=== PATIENT | male | born 1960 | race Caucasian/White ===

== ENCOUNTER 2017-05-29 12:00 | Inpatient (IN) | payer MEDICAID ==
[~2017-05-29] VITALS: Ht 182.9 cm; Wt 81.8 kg
[2017-05-29] MEDS ORDERED: TRIH2TAB3 PO (12:15)
[2017-05-29] MEDS ORDERED: OMEP20CA3 PO (12:15)
[2017-05-29] MEDS ORDERED: HYDR50CA2 PO (12:15)
[2017-05-29] MEDS ORDERED: VENL75CA47 (12:15)
[2017-05-29] MEDS ORDERED: DIVA500T9 (12:15)
[2017-05-29] MEDS ORDERED: GABA-282 PO (12:15)
[2017-05-29] MEDS ORDERED: FLUP5TA PO ×2 (12:15→16:25)
[2017-05-29] MEDS ORDERED: DIVA500T9 PO (12:15)
[2017-05-29] MEDS ORDERED: MOM 30ML SUSPENSION UDC PO PRN (14:00)
[2017-05-29] MEDS ORDERED: ACETAMINOPHEN TAB 650MG DOSE (2X325MG) PO PRN (14:00)
[2017-05-29] MEDS ORDERED: MAALOX 30 ML SUSP *UDC PO PRN (14:00)
[2017-05-29] MEDS ORDERED: FLUP25VL IM (16:18)
[2017-05-29] MEDS ORDERED: HYDR50TA70 PO (16:25)
[2017-05-29] MEDS: traZODone 50 MG TAB PO PRN (20:08)
[2017-05-29] MEDS: risperiDONE 1 MG TAB PO SCH (20:08)
[2017-05-30 06:38] VITALS: BP 130/69
[2017-05-30] MEDS: risperiDONE 1 MG TAB PO SCH ×2 (08:38→20:27)
--- NOTE | 2017-05-30 09:07 | HPEPDOC ---
Medical History and Physical Date of Admission May 30, 2017 History and Physical PCP: [facility] ATTENDING: Dr. Carlos Jimenez HPI: 56 yo M [facility] for unspecified depressive disorder, being medically examined today. Patient is transferred from [facility] to [facility]. No acute medical complaints today. Patient states he takes Depakote for mood, gabapentin for social anxiety. Denies any fevers, chills, weakness, fatigue, LEMUS , CP, SOB, cough, palpitations, abdominal pain, N/V/D or changes in bowel or bladder habits. PMHx: GERD COPD Tobacco use Schizophrenia Schizoaffective disorder Bipolar disorder Anxiety Depression Hypertension History of alcohol use History of substance use Poor dentition PSHX: Right ankle fracture SOCHX: Resides in: [facility], resides with a roommate Marital Status: Single Kids: None Employment: Unemployed Tobacco use: 3 packs per day ETOH: Daily, states 1-2 drinks per day Illicit Drugs: Marijuana daily IV Drug Use: History of cocaine in the 1980s per patient. Tattoos done unprofessionally: Denies FAMHX: Mother: , unknown Father: , lung cancer Siblings: One sister , unknown. 2 brothers Alive, well Children: None Unexpected deaths due to medical reasons: None. ROS: As noted in HPI, otherwise 11pt ROS of systems reviewed and unremarkable. PE: GEN: 56-year-old male, appears older than stated age. Thin appearing. No acute distress. Alert and oriented x 3. Difficulty with answering questions. HEENT: Normocephalic, atraumatic. Pupils are equal, round, and reactive to light. Extraocular movements are intact. No nystagmus appreciated. Sclera are nonicteric. Conjunctiva without injection. Nose midline. EACs both patent BL. TMs both visualized and sy with good cone of light, no bulging or erythema. No facial asymmetry. Moist mucous membranes. Poor dentition. Pharynx pink and moist. Neck supple, trachea midline. No lymphadenopathy or thyromegaly appreciated. CHEST: Regular rate and rhythm, +S1, +S2 LUNGS: Clear to auscultation bilaterally. No wheezes, rales, or rhonchi. Breathing appears symmetric and easy. Patient is speaking in full sentences. No accessory muscle use. ABD: Round, soft, non-tender, non-distended. +Bowel sounds throughout. No rebound or guarding. No costovertebral angle tenderness. EXT: Pulses 2+ bilaterally dorsalis pedis and radial. No lower extremity edema appreciated. SKIN: Smarr, dry, warm. Capillary refill <2sec. No rashes. NEURO: Alert and oriented x 3. Cranial nerves III-XII are intact. No focal deficits appreciated. EKG: [facility]. SB 56 bpm. [facility] WBC 10.7 Hgb 13.5 HCT 39.0 PLT 256 Gluc 92 BUN 17 SCr 0.679 Na 138 Cl 101 K 4.1 Ca 8.5 ALT 18 AST 12 UA unremarkable toxicology unremarkable A&P: 56 yo M [facility] for unspecified depressive disorder 1. Psych. Plan per Psychiatry. EKG on file. 2. Nicotine dependence. Patch available. 3. GERD. Continue Prilosec 40 mg daily. 4. Follow up with PCP on discharge. 5. Substance use. Per psychiatry. 6. History of hypertension. Blood pressure is noted to be 130/69 this morning. Monitor blood pressure trends. 7. Poor dentition. Arrange follow up with dental provider at discharge. No reported pain or issues at this time. 8. Staff member Gaston present throughout exam. Vital Signs Vital Signs Date Time Temp Pulse Resp B/P (MAP) Pulse Ox O2 Delivery O2 Flow Rate FiO2 05/30/17 06:38 97.8 57 20 130/69 (89) 05/29/17 15:16 98 Room Air Home Medications Scheduled Divalproex Sodium (Divalproex Sodium ER) 500 Mg Tab, 1,000 MG PO BID Fluphenazine Decanoate (Fluphenazine Decanoate) 25 Mg/Ml Soln, 25 MG IM Q2WK for PSYCHOSIS Fluphenazine HCl (Fluphenazine HCl) 5 Mg Tab, 7.5 MG PO BID for SCHIZOPHRENIA Gabapentin (Gabapentin) 300 Mg Cap, 300 MG PO BID for SOCIAL ANXIETY Omeprazole (Omeprazole) 20 Mg Cap, 40 MG PO DAILY Trihexyphenidyl HCl (Trihexyphenidyl HCl) 2 Mg Tab, 2 MG PO DAILY for EPS TAKE WITH FOOD Venlafaxine HCl (Venlafaxine HCl ER) 75 Mg Capcr, DAILY Scheduled PRN Hydroxyzine HCl (Hydroxyzine HCl) 50 Mg Tab, 50 MG PO TIDP PRN for ANXIETY Allergies Coded Allergies: Haloperidol (Verified Allergy, Severe, 05/29/17) Chlorpromazine (Verified Allergy, Intermediate, 05/29/17) Benztropine (Verified Allergy, Unknown, 05/29/17) Magi Pavon May 30, 2017 09:07
[2017-05-30] MEDS: OMEPRAZOLE 20 MG CAP PO SCH (09:36)
[2017-05-30] MEDS ORDERED: hydrOXYzine 50 MG TAB PO PRN (09:45)
[2017-05-30] MEDS ORDERED: fluPHENAZine DECAN 25MG/ML 5ML VIAL (J2680) IM ONE (10:00)
--- NOTE | 2017-05-30 12:11 | MHHPE ---
DATE OF ADMISSION: 05/29/2017 Mr. Arellano is followed by the [facility]. He states he is "bummed out". He states he has been smoking Marijuana and drinking and getting depressed. Apparently, he stated suicide was being considered. He states the last time he ws sober was 5 years ago. He also states he has been in an relationship not working out. He has been somewhat noncompliant with medications mostly due to sexual side effects. After speaking with the [facility], he presented himself to the emergency room and was sent here. MEDICATION HISTORY: He is presently on Prolixin injectable every 2 weeks and oral. He received his injection today here. He is also on Depakote, gabapentin, risperidone and Artane and venlafaxine. LIVING SITUATION: He is in a supervised apartment, which is run by [employer]. PSYCHIATRIC CARE: He is taken care by the ACT team with . The patient was born in [place] with a GED education. 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 He states he has also worked in [employer]. LEGAL HISTORY: He does not have any recent legal difficulties. ALCOHOL HISTORY: He has been drinking daily. He states he used to drink a 12-pack a day but he states now with medications, it has been less. He does smoke marijuana daily. HOSPITALIZATION HISTORY: He states he has had multiple hospitalizations in [place]. MENTAL STATUS EXAMINATION: He denies hallucinations, delusions, obsessive compulsive and phobias. His speech is somewhat rapid. No obvious significant disturbance in thought process. No loose associations. No present psychotic thoughts expressed. Judgment and insight fair. He is fully oriented to recent and remote memory. No difficulties with attention and concentration. He has a full fund of knowledge. His mood is good. He is grateful to be here and his affect is reasonably bright. Physical difficulties noted besides from those seen by our physician is that he has severe varicose veins on his right leg. DIAGNOSIS: Schizophrenia, chronic. PLAN: Continue medications and observe.
[2017-05-30 12:54] LABS: MEAN CORPUSCULAR HEMOGLOBIN 31.6 pg (27.0-33.0); MEAN CORPUSCULAR HGB CONC 34.1 g/dl (32.0-36.5); MEAN CORPUSCULAR VOLUME 92.7 fl (80.0-96.0); RED CELL DISTRIBUTION WIDTH 13.7 % (11.5-14.5)
[2017-05-30 18:00] VITALS: BP 128/86
[2017-05-30] MEDS: DIVALPROEX 500MG *ER* TAB PO SCH (20:27)
[2017-05-30] MEDS: GABAPENTIN 300 MG CAP PO SCH (20:27)
[2017-05-31 06:44] VITALS: BP 140/84
[2017-05-31] MEDS: VENLAFAXINE **XR** 75MG CAPSULE PO SCH (09:11)
[2017-05-31] MEDS: DIVALPROEX 500MG *ER* TAB PO SCH ×2 (09:11→21:00)
[2017-05-31] MEDS: TRIHEXYPHENIDYL 2 MG TAB PO SCH (09:11)
[2017-05-31] MEDS: risperiDONE 1 MG TAB PO SCH ×2 (09:11→21:00)
[2017-05-31] MEDS: OMEPRAZOLE 20 MG CAP PO SCH (09:11)
[2017-05-31] MEDS: GABAPENTIN 300 MG CAP PO SCH ×2 (09:11→21:02)
--- NOTE | 2017-05-31 15:20 | MHIPN ---
DATE: 05/31/2017 Jesse Arellano was seen by me today. He states he would like to relocate to [place] because he thinks there are more facilities here. He thinks his difficulties were made worse by his drinking. As discussed yesterday, he was noncompliant with his antipsychotics due to sexual side effects. I noted that he is on two antipsychotics and will consider changing that back to simply Prolixin. He received a Prolixin injection on admission. MENTAL STATUS EXAMINATION: Speech is normal. No disturbance of thought processes. No discussion of psychotic thoughts or presentation of hallucinations or delusions. Judgment and insight are fair. He is fully oriented. Recent and remote memory intact. No disturbance of attention and concentration. He has a full fund of knowledge and his mood seems good, affect neutral. DIAGNOSIS: Chronic schizophrenia. PLAN: Placement housing and followup issues to be discussed with [employer] planners and possible reduction of antipsychotics to Prolixin only.
[2017-05-31 18:34] VITALS: BP 121/83
[2017-06-01 06:48] VITALS: BP 138/71
[2017-06-01] MEDS: VENLAFAXINE **XR** 75MG CAPSULE PO SCH (08:47)
[2017-06-01] MEDS: GABAPENTIN 300 MG CAP PO SCH ×2 (08:47→20:51)
[2017-06-01] MEDS: TRIHEXYPHENIDYL 2 MG TAB PO SCH (08:47)
[2017-06-01] MEDS: OMEPRAZOLE 20 MG CAP PO SCH (08:47)
[2017-06-01] MEDS: risperiDONE 1 MG TAB PO SCH (08:47)
[2017-06-01] MEDS: DIVALPROEX 500MG *ER* TAB PO SCH ×2 (08:47→20:51)
--- NOTE | 2017-06-01 11:34 | IPN ---
DATE OF SERVICE: 06/01/2017 Mr. Arellano would like to go to rehabilitation for drug and alcohol use. He also feels he cannot go back to the place where he lived, that there is no significant help for him there and he cannot get a job and that he gets associated with people who drink and use drugs. He does not recall any reason why he is on two antipsychotics. For this reason and the fact that he does well on Prolixin, I have discontinue his Risperdal. He has gotten his clothes. MENTAL STATUS EXAMINATION: Speech is normal. Thought process is normal. No loose associations. No psychotic thoughts at this time. Judgment and insight are good. He is fully oriented. Recent and remote memory intact. Attention and concentration intact. He has a full fund of knowledge. Mood is good. Affect is pleasant. DIAGNOSIS: Schizophrenia, chronic. Mixed substance abuse.
[2017-06-01 18:00] VITALS: BP 134/78
[2017-06-02 06:00] VITALS: BP 141/70
[2017-06-02] MEDS: VENLAFAXINE **XR** 75MG CAPSULE PO SCH (08:53)
[2017-06-02] MEDS: OMEPRAZOLE 20 MG CAP PO SCH (08:53)
[2017-06-02] MEDS: DIVALPROEX 500MG *ER* TAB PO SCH ×2 (08:53→20:15)
[2017-06-02] MEDS: TRIHEXYPHENIDYL 2 MG TAB PO SCH (08:53)
[2017-06-02] MEDS: GABAPENTIN 300 MG CAP PO SCH ×2 (08:53→20:15)
--- NOTE | 2017-06-02 12:23 | MHIPN ---
DATE: 06/02/2017 Mr. Arellano yesterday spoke about rehabilitation for drug and alcohol abuse. Discharge planners have been in touch with his case coordinator. Today, he stated he would like to go home prior to rehabilitation. Apparently, his desire to go to rehabilitation has been repeated in the past. Some concern that patient was on two antipsychotics and I discontinued his Risperdal. He has gotten his clothes. MENTAL STATUS EXAMINATION: Speech is normal. Thought process is normal. No loose associations. No psychotic thoughts. Judgment and insight are good. He is fully oriented. Recent and remote memory are intact. Attention and concentration intact. He has a full fund of knowledge. Mood is good. Affect is pleasant. DIAGNOSIS: Schizophrenia, chronic. Substance abuse.
[2017-06-02 18:33] VITALS: BP 133/80
[2017-06-03 07:14] VITALS: BP 130/75
[2017-06-03] MEDS: TRIHEXYPHENIDYL 2 MG TAB PO SCH (08:55)
[2017-06-03] MEDS: DIVALPROEX 500MG *ER* TAB PO SCH ×2 (08:56→20:14)
[2017-06-03] MEDS: VENLAFAXINE **XR** 75MG CAPSULE PO SCH (08:56)
[2017-06-03] MEDS: GABAPENTIN 300 MG CAP PO SCH ×2 (08:57→20:14)
[2017-06-03] MEDS: OMEPRAZOLE 20 MG CAP PO SCH (08:57)
[2017-06-03 18:28] VITALS: BP 102/66
[2017-06-03] MEDS: traZODone 50 MG TAB PO PRN (20:16)
[2017-06-04 06:22] VITALS: BP 130/74
[2017-06-04] MEDS: GABAPENTIN 300 MG CAP PO SCH ×2 (08:02→21:46)
[2017-06-04] MEDS: TRIHEXYPHENIDYL 2 MG TAB PO SCH (08:02)
[2017-06-04] MEDS: OMEPRAZOLE 20 MG CAP PO SCH (08:02)
[2017-06-04] MEDS: VENLAFAXINE **XR** 75MG CAPSULE PO SCH (08:02)
[2017-06-04] MEDS: DIVALPROEX 500MG *ER* TAB PO SCH ×2 (08:02→21:46)
[2017-06-04 18:50] VITALS: BP 128/70
[2017-06-05 06:00] VITALS: BP 140/77
[2017-06-05] MEDS: GABAPENTIN 300 MG CAP PO SCH (08:21)
[2017-06-05] MEDS: VENLAFAXINE **XR** 75MG CAPSULE PO SCH (08:22)
[2017-06-05] MEDS: DIVALPROEX 500MG *ER* TAB PO SCH (08:22)
[2017-06-05] MEDS: OMEPRAZOLE 20 MG CAP PO SCH (08:22)
[2017-06-05] MEDS: TRIHEXYPHENIDYL 2 MG TAB PO SCH (08:22)
--- NOTE | 2017-06-05 10:39 | MHDS ---
DATE OF ADMISSION: 05/29/2017 DATE OF DISCHARGE: 06/05/2017 Mr. Arellano is followed at the [facility]. He states he is "bummed out". He has been smoking marijuana, drinking and getting depressed. Apparently he states that he was considering suicide. He states the last time he was sober was 5 years ago. He states he has been in a relationship that has not been working out. He has been noncompliant with medications due to sexual side effects and after speaking with the [facility], he decided to come to the emergency room. MEDICATION HISTORY: He has been on Prolixin injectable every 2 weeks and received an injection while here. He is on: - Depakote - gabapentin - risperidone - Artane - venlafaxine LIVING SITUATION: He is in a supervised apartment run by [employer]. Patient was born in [place] with a GED education. He worked in mental health field. According to him, he states he has worked in [employer]. LEGAL HISTORY: He does not have any recent legal difficulties. ALCOHOL HISTORY: Negative. He has been drinking daily. He states he used to drink a 12 pack a day but states it has been less recently. He smokes marijuana daily. He has had multiple hospitalizations in [place]. MENTAL STATUS EXAMINATION ON ADMISSION: He denies hallucinations, delusions, obsessions, compulsions and phobias. COURSE ON THE UNIT: The patient stated he would like to relocate to [place]. Apparently this is according to workers who care for him. This is a repetitive request by him. He later stated he would like to return to his present living situation until he hears any further information about rehabilitation or changing his living situation. I noted that the patient was on two antipsychotics and changed him back to simply being on Prolixin. If there is a need for other antipsychotics to be added to the Prolixin, I would suggest that be taken up by his outpatient treatment. Mr. Arellano stated that he felt he was not getting significant help where he lived and that he was associating with people who drink and use drugs. He was unable to tell me why he was on two antipsychotics. I discontinued his risperidone since he was already on Prolixin. Patient stated that he would like to go home prior to rehabilitation. Patient continuing on his home medications of Prolixin, gabapentin, Artane and venlafaxine. His risperidone was discontinued. DISCHARGE DIAGNOSES: Schizophrenia, chronic. Alcohol and drug abuse. Discharge back to present living situation and followup. DIPAK
== END 2017-06-05 11:25 | disposition home or self-care (01) | DRG 750 ==
LOC: EDBD 12:00 → M ED 12:00 → M PSY 15:39
PROVIDERS: ADMIT Psychiatry & Neurology Child & Adolescent Psychiatry; ATTEND Psychiatry & Neurology Child & Adolescent Psychiatry
DX: F20.5 Residual schizophrenia (principal); F10.10 Alcohol abuse, uncomplicated; F12.10 Cannabis abuse, uncomplicated; Z91.19 Patient's noncompliance with other medical treatment and regimen; Z79.899 Other long term (current) drug therapy; K21.9 Gastro-esophageal reflux disease without esophagitis; J44.9 Chronic obstructive pulmonary disease, unspecified; I10 Essential (primary) hypertension; F41.9 Anxiety disorder, unspecified; F17.200 Nicotine dependence, unspecified, uncomplicated; Z88.8 Allergy status to other drugs, medicaments and biological substances

== ENCOUNTER → 2018-01-15 | Outpatient (CLI) | payer MEDICARE, MEDICAID | LOC: M OUTALCOH 15:09 | DX: F10.20 Alcohol dependence, uncomplicated (principal) | CPT/HCPCS: H0001 ==

== ENCOUNTER 2018-01-22 13:44 | Outpatient (RCR) | payer MEDICARE, MEDICAID | END 2018-02-08 | LOC: M OUTALCOH 02-07 12:30 | DX: F10.20 Alcohol dependence, uncomplicated (principal); F12.20 Cannabis dependence, uncomplicated | CPT/HCPCS: 90834 ==

== ENCOUNTER 2018-02-14 15:23 | Outpatient (RCR) | payer MEDICARE, MEDICAID | END 2018-03-10 | LOC: M OUTALCOH 02-15 11:00 | DX: F10.20 Alcohol dependence, uncomplicated (principal); F12.20 Cannabis dependence, uncomplicated | CPT/HCPCS: 90834 ==

== ENCOUNTER 2018-03-12 10:58 | Outpatient (RCR) | payer MEDICARE, MEDICAID | END 2018-04-10 | LOC: M OUTALCOH 03-21 09:00 | DX: F10.20 Alcohol dependence, uncomplicated (principal); F12.20 Cannabis dependence, uncomplicated | CPT/HCPCS: 90834 ==

== ENCOUNTER 2018-04-27 23:50 | Inpatient (IN) | payer MEDICARE, MEDICAID ==
[2018-04-28 01:31] LABS: HEMOGLOBIN 13.9 g/dl (13.5-17.5); MEAN CORPUSCULAR HEMOGLOBIN 30.3 pg (27.0-33.0); MEAN CORPUSCULAR HGB CONC 33.1 g/dl (32.0-36.5); MEAN CORPUSCULAR VOLUME 91.7 fl (80.0-96.0); PLATELET COUNT, AUTOMATED 245 10^3/uL (150-450); RED BLOOD COUNT 4.58 10^6/uL (4.30-6.10); RED CELL DISTRIBUTION WIDTH 13.1 % (11.5-14.5); WHITE BLOOD COUNT 6.1 10^3/uL (4.0-10.0)
[2018-04-28 02:18] LABS: AMPHETAMINES LEVEL URINE NEGATIVE (NEGATIVE); BARBITURATES URINE NEGATIVE (NEGATIVE); BENZODIAZEPINES URINE NEGATIVE (NEGATIVE); CANNABINOIDS URINE POSITIVE (NEGATIVE); COCAINE METABOLITE URINE NEGATIVE (NEGATIVE); METHADONE URINE NEGATIVE (NEGATIVE); OPIATES URINE NEGATIVE (NEGATIVE); PHENCYCLIDINE URINE NEGATIVE (NEGATIVE)
[2018-04-28 02:22] LABS: ACETAMINOPHEN LEVEL < 2.0 UG/ML (10.0-30.0); ALBUMIN 3.4 GM/DL (3.2-5.2); ALBUMIN/GLOBULIN RATIO 1.13 (1.00-1.93); ALKALINE PHOSPHATASE 56 U/L (45-117); ALT/SGPT 20 U/L (12-78); ANION GAP 7 MEQ/L (8-16); AST/SGOT 12 U/L (7-37); BILIRUBIN,DIRECT 0.1 MG/DL (0.0-0.2); BILIRUBIN,TOTAL 0.2 MG/DL (0.2-1.0); BLOOD UREA NITROGEN 9 MG/DL (7-18); CALCIUM LEVEL 8.7 MG/DL (8.5-10.1); CARBON DIOXIDE LEVEL 31 MEQ/L (21-32); CHLORIDE LEVEL 101 MEQ/L (98-107); ETHYL ALCOHOL (ETHANOL) < 0.003 % (0.000-0.010); GLOMERULAR FILTRATION RATE > 60.0 (>56); GLUCOSE, FASTING 145 MG/DL (70-100); POTASSIUM SERUM 4.2 MEQ/L (3.5-5.1); SALICYLATE LEVEL 2.3 MG/DL (5.0-30.0); SODIUM LEVEL 139 MEQ/L (136-145); TOTAL PROTEIN 6.4 GM/DL (6.4-8.2)
[2018-04-28] MEDS ORDERED: ACETAMINOPHEN TAB 650MG DOSE (2X325MG) PO (03:00)
[2018-04-28] MEDS ORDERED: MAALOX 30 ML SUSP *UDC PO (03:00)
[2018-04-28] MEDS ORDERED: traZODone 50 MG TAB PO (03:00)
[2018-04-28] MEDS ORDERED: MOM 30ML SUSPENSION UDC PO (03:00)
[2018-04-28] MEDS: NICOTINE 21MG/24HR 1 EA TRANSDERMAL TD (08:03)
[2018-04-28] MEDS ORDERED: hydrOXYzine 25 MG TAB PO (13:30)
[2018-04-28] MEDS ORDERED: IBUPROFEN 400 MG TAB PO (13:30)
[2018-04-28] MEDS: OLANZapine ORAL DISINTEGRATING TAB 5MG PO (13:32)
[2018-04-28] MEDS: VENLAFAXINE **XR** 75MG CAPSULE PO (15:01)
[2018-04-28] MEDS: GABAPENTIN 300 MG CAP PO ×2 (15:01→20:29)
[2018-04-28] MEDS: DIVALPROEX 500MG *ER* TAB PO ×2 (15:02→20:29)
[2018-04-28 15:16] LABS: VALPROIC ACID (DEPAKOTE) 47.1 UG/ML (50.0-100.0)
[2018-04-28] MEDS: diphenhydrAMINE 50 MG CAP PO (20:29)
[2018-04-28] MEDS ORDERED: BENZTROPINE 1 MG TAB PO (21:00)
[2018-04-29] MEDS: NICOTINE 21MG/24HR 1 EA TRANSDERMAL TD (09:00)
[2018-04-29] MEDS: DIVALPROEX 500MG *ER* TAB PO ×2 (09:02→21:59)
[2018-04-29] MEDS: GABAPENTIN 300 MG CAP PO ×3 (09:02→21:58)
[2018-04-29] MEDS: VENLAFAXINE **XR** 75MG CAPSULE PO (09:02)
[2018-04-29] MEDS: diphenhydrAMINE 50 MG CAP PO (21:59)
[2018-04-30] MEDS: NICOTINE 21MG/24HR 1 EA TRANSDERMAL TD (09:00)
[2018-04-30] MEDS: DIVALPROEX 500MG *ER* TAB PO ×2 (09:26→20:16)
[2018-04-30] MEDS: VENLAFAXINE **XR** 75MG CAPSULE PO (09:26)
[2018-04-30] MEDS: GABAPENTIN 300 MG CAP PO ×3 (09:26→20:16)
[2018-04-30] MEDS: PROPRANOLOL 10 MG TAB PO ×3 (11:37→20:17)
[2018-04-30] MEDS: diphenhydrAMINE 50 MG CAP PO (20:16)
[2018-05-01] MEDS: NICOTINE 21MG/24HR 1 EA TRANSDERMAL TD (09:00)
[2018-05-01] MEDS: PROPRANOLOL 10 MG TAB PO (09:11)
[2018-05-01] MEDS: GABAPENTIN 300 MG CAP PO (09:11)
[2018-05-01] MEDS: VENLAFAXINE **XR** 75MG CAPSULE PO (09:11)
[2018-05-01] MEDS: DIVALPROEX 500MG *ER* TAB PO (09:11)
[2018-05-01] MEDS: fluPHENAZine DECAN 25MG/ML 5ML VIAL (J2680) IM (09:16)
== END 2018-05-01 12:50 | disposition home or self-care (01) | DRG 885 ==
LOC: M ED 23:50 → M ED INP 04-28 02:58 → M PSY 04-28 03:56
DX: F20.0 Paranoid schizophrenia (principal); F12.90 Cannabis use, unspecified, uncomplicated; Z79.899 Other long term (current) drug therapy; Z91.19 Patient's noncompliance with other medical treatment and regimen; Z88.8 Allergy status to other drugs, medicaments and biological substances; K21.9 Gastro-esophageal reflux disease without esophagitis; J44.9 Chronic obstructive pulmonary disease, unspecified; I10 Essential (primary) hypertension; F41.9 Anxiety disorder, unspecified; F17.200 Nicotine dependence, unspecified, uncomplicated

== ENCOUNTER → 2018-07-19 | Outpatient (CLI) | payer MEDICARE, MEDICAID | LOC: M OUTALCOH 09:16 | DX: Z13.9 Encounter for screening, unspecified (principal) | CPT/HCPCS: H0001 ==

== ENCOUNTER 2018-07-26 14:07 | Outpatient (RCR) | payer MEDICARE, MEDICAID | END 2018-08-10 | LOC: M OUTALCOH 14:07 | DX: F10.20 Alcohol dependence, uncomplicated (principal); F12.20 Cannabis dependence, uncomplicated | CPT/HCPCS: 90834 ==

== ENCOUNTER 2018-08-10 01:03 | Emergency (ER) | payer MEDICARE, MEDICAID | END 2018-08-10 02:20 | disposition home or self-care (01) | LOC: M ED 01:03 | DX: F33.9 Major depressive disorder, recurrent, unspecified (principal); I10 Essential (primary) hypertension; F25.9 Schizoaffective disorder, unspecified; Z79.899 Other long term (current) drug therapy | CPT/HCPCS: 99284 ==

== ENCOUNTER 2018-09-06 09:17 | Outpatient (RCR) | payer MEDICARE, MEDICAID ==
[~2018-09-06 09:17] MED LIST: ABIL1TAB12 PO; DIPH50CA PO; DIVA500T9; DIVA500T9 PO; FLUP10TA PO; FLUP25VL IM; FLUP5TA PO; GABA-843 PO; HYDR50CA2 PO; HYDR50TA70 PO; LISI10TA4 PO; OMEP20CA3 PO; PANT40TA3 PO; PROP10TAB PO; TRIH2TAB3 PO; VENL150C43 PO; VENL75CA47
== END 2018-09-10 ==
LOC: M OUTALCOH 09:17
PROVIDERS: ATTEND Psychiatry & Neurology Psychiatry
DX: F10.20 Alcohol dependence, uncomplicated (principal); F12.20 Cannabis dependence, uncomplicated; F17.200 Nicotine dependence, unspecified, uncomplicated

== ENCOUNTER 2018-09-19 10:00 | Outpatient (RCR) | payer MEDICARE, MEDICAID | END 2018-10-11 | LOC: M OUTALCOH 10:00 | PROVIDERS: ATTEND Psychiatry & Neurology Psychiatry | DX: F12.20 Cannabis dependence, uncomplicated (principal); F10.20 Alcohol dependence, uncomplicated; F17.200 Nicotine dependence, unspecified, uncomplicated ==

== ENCOUNTER → 2018-11-08 | Outpatient (RCR) | payer MEDICARE, MEDICAID | LOC: M OUTALCOH 10-18 10:08 | PROVIDERS: ATTEND Psychiatry & Neurology Psychiatry | DX: F12.20 Cannabis dependence, uncomplicated (principal); F10.20 Alcohol dependence, uncomplicated; F17.200 Nicotine dependence, unspecified, uncomplicated ==

== ENCOUNTER 2018-12-06 11:00 | Outpatient (RCR) | payer MEDICARE, MEDICAID | END 2018-12-09 | LOC: M OUTALCOH 11:00 | PROVIDERS: ATTEND Psychiatry & Neurology Psychiatry | DX: F12.20 Cannabis dependence, uncomplicated (principal); F10.20 Alcohol dependence, uncomplicated; F17.200 Nicotine dependence, unspecified, uncomplicated ==

== ENCOUNTER → 2018-12-28 | Outpatient (CLI) | payer MEDICARE, MEDICAID ==
[~2018-12-28] MED LIST changes: +PROP10TA55 PO; -PROP10TAB PO
== END ==
LOC: M LAB 09:13
PROVIDERS: ATTEND Nurse Practitioner Psychiatric/Mental Health
DX: F20.9 Schizophrenia, unspecified (principal)

== ENCOUNTER 2019-01-02 12:57 | Outpatient (RCR) | payer MEDICARE, MEDICAID | END 2019-01-08 | LOC: M PT 12:57 | PROVIDERS: ATTEND Nurse Practitioner Family | DX: M79.603 Pain in arm, unspecified (principal); R20.0 Anesthesia of skin ==

== ENCOUNTER 2019-01-03 10:00 | Outpatient (RCR) | payer MEDICARE, MEDICAID | END 2019-01-08 | LOC: M OUTALCOH 10:00 | PROVIDERS: ATTEND Psychiatry & Neurology Psychiatry | DX: F10.20 Alcohol dependence, uncomplicated (principal); F12.20 Cannabis dependence, uncomplicated; F17.200 Nicotine dependence, unspecified, uncomplicated ==

== ENCOUNTER 2019-01-16 13:39 | Outpatient (RCR) | payer MEDICARE, MEDICAID ==
[2019-01-21] MEDS ORDERED: LISI-542 PO (03:06)
[2019-01-21] MEDS ORDERED: ARIP1TAB PO (03:06)
[2019-01-21] MEDS ORDERED: GABA-843 PO (03:06)
[2019-01-21] MEDS ORDERED: INVE1.75 IM (03:06)
== END 2019-02-08 ==
LOC: M PT 13:39
PROVIDERS: ATTEND Nurse Practitioner Family
DX: R20.0 Anesthesia of skin (principal); M79.603 Pain in arm, unspecified

== ENCOUNTER 2019-01-21 01:38 | Emergency (ER) | payer MEDICARE, MEDICAID ==
[~2019-01-21] VITALS: Ht 180.3 cm; Wt 92.7 kg
[2019-01-21 02:44] LABS: AMPHETAMINES LEVEL URINE NEGATIVE (NEGATIVE); BARBITURATES URINE NEGATIVE (NEGATIVE); BENZODIAZEPINES URINE NEGATIVE (NEGATIVE); CANNABINOIDS URINE POSITIVE (NEGATIVE); COCAINE METABOLITE URINE NEGATIVE (NEGATIVE); METHADONE URINE NEGATIVE (NEGATIVE); OPIATES URINE NEGATIVE (NEGATIVE); PHENCYCLIDINE URINE NEGATIVE (NEGATIVE)
[2019-01-21 02:45] LABS: HEMATOCRIT 38.8 % (42.0-52.0); MEAN CORPUSCULAR HEMOGLOBIN 30.7 pg (27.0-33.0); MEAN CORPUSCULAR HGB CONC 33.5 g/dl (32.0-36.5); MEAN CORPUSCULAR VOLUME 91.7 fl (80.0-96.0); PLATELET COUNT, AUTOMATED 269 10^3/uL (150-450); RED BLOOD COUNT 4.23 10^6/uL (4.30-6.10); WHITE BLOOD COUNT 7.8 10^3/uL (4.0-10.0)
[2019-01-21] MEDS ORDERED: ARIP1TAB PO (03:06)
[2019-01-21] MEDS ORDERED: LISI-542 PO (03:06)
[2019-01-21] MEDS ORDERED: GABA-843 PO (03:06)
[2019-01-21] MEDS ORDERED: INVE1.75 IM (03:06)
[2019-01-21 03:34] LABS: ACETAMINOPHEN LEVEL < 2.0 UG/ML (10.0-30.0); ALBUMIN 3.2 GM/DL (3.2-5.2); ALT/SGPT 22 U/L (12-78); BILIRUBIN,DIRECT 0.1 MG/DL (0.0-0.2); BILIRUBIN,TOTAL 0.3 MG/DL (0.2-1.0); BLOOD UREA NITROGEN 12 MG/DL (7-18); CALCIUM LEVEL 8.3 MG/DL (8.5-10.1); CARBON DIOXIDE LEVEL 31 MEQ/L (21-32); CHLORIDE LEVEL 99 MEQ/L (98-107); CREATININE FOR GFR 0.72 MG/DL (0.70-1.30); GLOMERULAR FILTRATION RATE > 60.0 (>56); GLUCOSE, FASTING 79 MG/DL (70-100); POTASSIUM SERUM 4.4 MEQ/L (3.5-5.1); SALICYLATE LEVEL 2.2 MG/DL (5.0-30.0); SODIUM LEVEL 135 MEQ/L (136-145); TOTAL PROTEIN 6.1 GM/DL (6.4-8.2)
[2019-01-21 03:35] LABS: ETHYL ALCOHOL (ETHANOL) < 0.003 % (0.000-0.010)
[2019-01-21 04:17] VITALS: BP 159/93
== END 2019-01-21 04:18 | disposition home or self-care (01) ==
LOC: M ED 01:38
DX: F41.8 Other specified anxiety disorders (principal); I10 Essential (primary) hypertension; K21.9 Gastro-esophageal reflux disease without esophagitis
CPT/HCPCS: 80048; 80076; 80307; 84443; 85027; 99284; G0480

== ENCOUNTER 2019-02-02 13:41 | Emergency (ER) | payer MEDICARE, MEDICAID ==
[~2019-02-02] VITALS: Ht 182.9 cm; Wt 92.0 kg
[~2019-02-02 13:41] MED LIST changes: +ARIP1TAB PO; +INVE1.75 IM; +LISI-542 PO
[2019-02-02 14:28] LABS: HEMATOCRIT 41.8 % (42.0-52.0); HEMOGLOBIN 14.1 g/dl (13.5-17.5); MEAN CORPUSCULAR HEMOGLOBIN 31.1 pg (27.0-33.0); MEAN CORPUSCULAR HGB CONC 33.7 g/dl (32.0-36.5); MEAN CORPUSCULAR VOLUME 92.3 fl (80.0-96.0); PLATELET COUNT, AUTOMATED 234 10^3/uL (150-450); RED BLOOD COUNT 4.53 10^6/uL (4.30-6.10); WHITE BLOOD COUNT 6.4 10^3/uL (4.0-10.0)
[2019-02-02 15:02] LABS: AMPHETAMINES LEVEL URINE NEGATIVE (NEGATIVE); BARBITURATES URINE NEGATIVE (NEGATIVE); BENZODIAZEPINES URINE NEGATIVE (NEGATIVE); CANNABINOIDS URINE POSITIVE (NEGATIVE); COCAINE METABOLITE URINE NEGATIVE (NEGATIVE); METHADONE URINE NEGATIVE (NEGATIVE); OPIATES URINE NEGATIVE (NEGATIVE); PHENCYCLIDINE URINE NEGATIVE (NEGATIVE)
[2019-02-02 15:20] LABS: ACETAMINOPHEN LEVEL < 2.0 UG/ML (10.0-30.0); ALBUMIN 3.6 GM/DL (3.2-5.2); ALT/SGPT 21 U/L (12-78); BILIRUBIN,DIRECT 0.2 MG/DL (0.0-0.2); BILIRUBIN,TOTAL 0.6 MG/DL (0.2-1.0); BLOOD UREA NITROGEN 13 MG/DL (7-18); CALCIUM LEVEL 8.6 MG/DL (8.5-10.1); CARBON DIOXIDE LEVEL 32 MEQ/L (21-32); CHLORIDE LEVEL 98 MEQ/L (98-107); CREATININE FOR GFR 0.62 MG/DL (0.70-1.30); ETHYL ALCOHOL (ETHANOL) < 0.003 % (0.000-0.010); GLOMERULAR FILTRATION RATE > 60.0 (>56); GLUCOSE, FASTING 86 MG/DL (70-100); POTASSIUM SERUM 4.1 MEQ/L (3.5-5.1); SALICYLATE LEVEL 2.6 MG/DL (5.0-30.0); SODIUM LEVEL 134 MEQ/L (136-145); THYROID STIMULATING HORMONE 0.733 uIU/ML (0.358-3.740); TOTAL PROTEIN 7.2 GM/DL (6.4-8.2)
[2019-02-02 15:58] VITALS: BP 142/91
== END 2019-02-02 16:00 | disposition home or self-care (01) ==
LOC: M ED 13:41
DX: F23 Brief psychotic disorder (principal); I10 Essential (primary) hypertension; J44.9 Chronic obstructive pulmonary disease, unspecified; F43.10 Post-traumatic stress disorder, unspecified; K21.9 Gastro-esophageal reflux disease without esophagitis; F17.200 Nicotine dependence, unspecified, uncomplicated; Z88.8 Allergy status to other drugs, medicaments and biological substances; Z79.899 Other long term (current) drug therapy
CPT/HCPCS: 36415; 80048; 80076; 80307; 84443; 85027; 99284; G0480

== ENCOUNTER 2019-02-07 10:00 | Outpatient (RCR) | payer MEDICARE, MEDICAID | END 2019-02-08 | LOC: M OUTALCOH 10:00 | PROVIDERS: ATTEND Psychiatry & Neurology Psychiatry | DX: F10.20 Alcohol dependence, uncomplicated (principal); F12.20 Cannabis dependence, uncomplicated; F17.200 Nicotine dependence, unspecified, uncomplicated | CPT/HCPCS: 90834; H0050 ==

== ENCOUNTER 2019-03-07 11:00 | Outpatient (RCR) | payer MEDICARE, MEDICAID | END 2019-03-10 | LOC: M OUTALCOH 11:00 | PROVIDERS: ATTEND Psychiatry & Neurology Psychiatry | DX: F10.20 Alcohol dependence, uncomplicated (principal); F12.20 Cannabis dependence, uncomplicated; F17.200 Nicotine dependence, unspecified, uncomplicated ==

== ENCOUNTER 2019-04-04 09:41 | Outpatient (RCR) | payer MEDICARE, MEDICAID ==
[~2019-04-04 09:41] MED LIST changes: -OMEP20CA3 PO; +OMEP20CA4 PO
== END 2019-04-10 ==
LOC: M OUTALCOH 09:41
PROVIDERS: ATTEND Psychiatry & Neurology Psychiatry
DX: F12.20 Cannabis dependence, uncomplicated (principal); F10.20 Alcohol dependence, uncomplicated; F17.200 Nicotine dependence, unspecified, uncomplicated

== ENCOUNTER 2019-05-09 10:54 | Outpatient (RCR) | payer MEDICARE, MEDICAID ==
[2019-05-11] MEDS ORDERED: DEPA1TAB3 PO (08:25)
[2019-05-11] MEDS ORDERED: TRIH2TAB3 PO (08:26)
[2019-05-11] MEDS ORDERED: ARIP1TAB44 PO (08:26)
[2019-05-11] MEDS ORDERED: GABA-843 PO (08:26)
[2019-05-11] MEDS ORDERED: VENL75CA47 PO (08:26)
[2019-05-11] MEDS ORDERED: INVE1.75 IM (08:26)
== END 2019-05-11 ==
LOC: M OUTALCOH 10:54
PROVIDERS: ATTEND Psychiatry & Neurology Psychiatry
DX: F10.20 Alcohol dependence, uncomplicated (principal); F12.20 Cannabis dependence, uncomplicated
CPT/HCPCS: 90834; H0050

== ENCOUNTER 2019-05-11 00:58 | Emergency (ER) | payer MEDICARE, MEDICAID ==
[~2019-05-11] VITALS: Ht 182.9 cm; Wt 92.0 kg
[2019-05-11 01:26] LABS: HEMATOCRIT 40.5 % (42.0-52.0); HEMOGLOBIN 13.4 g/dl (13.5-17.5); MEAN CORPUSCULAR HEMOGLOBIN 31.4 pg (27.0-33.0); MEAN CORPUSCULAR HGB CONC 33.1 g/dl (32.0-36.5); MEAN CORPUSCULAR VOLUME 94.8 fl (80.0-96.0); PLATELET COUNT, AUTOMATED 231 10^3/uL (150-450); RED BLOOD COUNT 4.27 10^6/uL (4.30-6.10); WHITE BLOOD COUNT 8.8 10^3/uL (4.0-10.0)
[2019-05-11 02:23] LABS: AMPHETAMINES LEVEL URINE NEGATIVE (NEGATIVE); BARBITURATES URINE NEGATIVE (NEGATIVE); BENZODIAZEPINES URINE NEGATIVE (NEGATIVE); CANNABINOIDS URINE POSITIVE (NEGATIVE); COCAINE METABOLITE URINE NEGATIVE (NEGATIVE); METHADONE URINE NEGATIVE (NEGATIVE); OPIATES URINE NEGATIVE (NEGATIVE); PHENCYCLIDINE URINE NEGATIVE (NEGATIVE)
[2019-05-11 02:35] LABS: ACETAMINOPHEN LEVEL < 2.0 UG/ML (10.0-30.0); ALBUMIN 3.2 GM/DL (3.2-5.2); ALT/SGPT 15 U/L (12-78); BILIRUBIN,DIRECT 0.1 MG/DL (0.0-0.2); BILIRUBIN,TOTAL 0.2 MG/DL (0.2-1.0); BLOOD UREA NITROGEN 15 MG/DL (7-18); CALCIUM LEVEL 8.5 MG/DL (8.5-10.1); CARBON DIOXIDE LEVEL 31 MEQ/L (21-32); CHLORIDE LEVEL 97 MEQ/L (98-107); CREATININE FOR GFR 0.74 MG/DL (0.70-1.30); ETHYL ALCOHOL (ETHANOL) < 0.003 % (0.000-0.010); GLOMERULAR FILTRATION RATE > 60.0 (>56); GLUCOSE, FASTING 106 MG/DL (70-100); POTASSIUM SERUM 4.5 MEQ/L (3.5-5.1); SALICYLATE LEVEL < 1.7 MG/DL (5.0-30.0); SODIUM LEVEL 135 MEQ/L (136-145); TOTAL PROTEIN 6.3 GM/DL (6.4-8.2); VALPROIC ACID (DEPAKOTE) 101.3 UG/ML (50.0-100.0)
[2019-05-11] MEDS ORDERED: DEPA1TAB3 PO (08:25)
[2019-05-11] MEDS ORDERED: ARIP1TAB44 PO (08:26)
[2019-05-11] MEDS ORDERED: GABA-843 PO (08:26)
[2019-05-11] MEDS ORDERED: VENL75CA47 PO (08:26)
[2019-05-11] MEDS ORDERED: INVE1.75 IM (08:26)
[2019-05-11] MEDS ORDERED: TRIH2TAB3 PO (08:26)
[2019-05-11] MEDS ORDERED: GABAPENTIN 300 MG CAP PO SCH (09:00)
[2019-05-11] MEDS ORDERED: PANTOPRAZOLE 40MG TAB (PROTONIX) PO SCH (09:00)
[2019-05-11] MEDS ORDERED: DIVALPROEX 500 MG TAB PO SCH (09:00)
[2019-05-11] MEDS ORDERED: LISINOPRIL 5 MG TAB PO SCH (09:00)
[2019-05-11] MEDS ORDERED: VENLAFAXINE **XR** 75MG CAPSULE PO SCH (09:00)
[2019-05-11 10:48] VITALS: BP 125/82
[2019-05-11] MEDS ORDERED: TRIHEXYPHENIDYL 2 MG TAB PO SCH (21:00)
--- NOTE | 2019-05-12 07:10 | ECGEPIP ---
[facility] - ED Test Date: 2019-05-11 Pat Name: CORINA CHAWLA Department: Room: - Gender: Male Finance Vice President: estephania : 1960 Requested By: LORNA HUIZAR Order Number: [id number] Reading MD: Vikki Marcum Measurements Intervals [place] Rate: 49 P: 67 NH: 175 QRS: 37 QRSD: 98 T: 55 QT: 409 QTc: 370 Interpretive Statements SINUS BRADYCARDIA NO PRIOR Electronically Signed on 05-12-2019 7:10:10 EDT by Vikki Marcum
== END 2019-05-11 10:51 ==
LOC: M ED 00:58
DX: F25.0 Schizoaffective disorder, bipolar type (principal); R45.851 Suicidal ideations; Z86.59 Personal history of other mental and behavioral disorders; F17.210 Nicotine dependence, cigarettes, uncomplicated; Z88.8 Allergy status to other drugs, medicaments and biological substances
CPT/HCPCS: 36415; 80048; 80076; 80164; 80307; 84443; 85027; 93005; 99284; G0480

== ENCOUNTER → 2019-05-29 | Outpatient (CLI) | payer MEDICARE, MEDICAID ==
[~2019-05-29] MED LIST changes: +ARIP1TAB44 PO; +DEPA1TAB3 PO; -FLUP10TA PO; +FLUP10TA11 PO; +GOOD200C PO; +INGR40CA PO; +MELATAB2 PO; +OMEP1CAP73 PO; -OMEP20CA4 PO; +TRAZ-252 PO; +VENL75CA47 PO
[2019-05-29 09:41] LABS: HEMOGLOBIN A1c 5.6 %
== END ==
LOC: M LAB 08:38
PROVIDERS: ATTEND Nurse Practitioner Psychiatric/Mental Health
DX: Z51.81 Encounter for therapeutic drug level monitoring (principal); Z79.899 Other long term (current) drug therapy; F20.9 Schizophrenia, unspecified

== ENCOUNTER 2019-06-07 11:00 | Outpatient (RCR) | payer MEDICARE, MEDICAID ==
[~2019-06-07 11:00] MED LIST changes: +FLUP10TA PO; -FLUP10TA11 PO; -GOOD200C PO; -INGR40CA PO; -MELATAB2 PO; -OMEP1CAP73 PO; +OMEP20CA4 PO; -TRAZ-252 PO
== END 2019-06-10 ==
LOC: M OUTALCOH 11:00
PROVIDERS: ATTEND Psychiatry & Neurology Psychiatry
DX: F12.20 Cannabis dependence, uncomplicated (principal); F10.20 Alcohol dependence, uncomplicated; F17.200 Nicotine dependence, unspecified, uncomplicated

== ENCOUNTER 2019-07-09 14:00 | Outpatient (RCR) | payer MEDICARE, MEDICAID | END 2019-07-11 | LOC: M OUTALCOH 14:00 | PROVIDERS: ATTEND Psychiatry & Neurology Psychiatry | DX: F12.20 Cannabis dependence, uncomplicated (principal); F10.20 Alcohol dependence, uncomplicated; F17.200 Nicotine dependence, unspecified, uncomplicated ==

== ENCOUNTER 2019-07-23 11:33 | Emergency (ER) | payer MEDICARE, MEDICAID ==
[~2019-07-23] VITALS: Ht 180.3 cm; Wt 87.3 kg
--- NOTE | 2019-07-23 12:28 | REP ---
Duplex extremity venous ultrasound: Right lower extremity. History: Right calf pain and lump. Findings: The deep veins are anechoic and fully compressible from the groin to the popliteal fossa in the right lower extremity. Color flow imaging is homogeneous. Spectral Doppler interrogation demonstrates intact respiratory variation in flow and normal manual augmentation of flow. There is no evidence of deep vein thrombosis. Impression: Negative right lower extremity duplex venous ultrasound. No evidence of deep vein thrombosis. Electronically Signed by Ashok Jha MD 07/23/2019 12:20 P
[2019-07-23] MEDS ORDERED: INGR40CA PO (12:31)
[2019-07-23] MEDS ORDERED: TRAZ-252 PO (12:31)
[2019-07-23 13:13] VITALS: BP 135/78
== END 2019-07-23 13:12 | disposition home or self-care (01) ==
LOC: M ED 11:33
DX: I80.03 Phlebitis and thrombophlebitis of superficial vessels of lower extremities, bilateral (principal); I83.813 Varicose veins of bilateral lower extremities with pain; F17.210 Nicotine dependence, cigarettes, uncomplicated; Z88.2 Allergy status to sulfonamides; Z88.4 Allergy status to anesthetic agent; Z79.83 Long term (current) use of bisphosphonates; Z79.84 Long term (current) use of oral hypoglycemic drugs; Z79.899 Other long term (current) drug therapy

== ENCOUNTER 2019-08-06 14:00 | Outpatient (RCR) | payer MEDICARE, MEDICAID ==
[~2019-08-06 14:00] MED LIST changes: +INGR40CA PO; +TRAZ-252 PO
== END 2019-08-10 ==
LOC: M OUTALCOH 14:00
PROVIDERS: ATTEND Psychiatry & Neurology Psychiatry
DX: F12.20 Cannabis dependence, uncomplicated (principal); F10.20 Alcohol dependence, uncomplicated; F17.200 Nicotine dependence, unspecified, uncomplicated

== ENCOUNTER 2019-09-02 12:00 | Outpatient (RCR) | payer MEDICARE, MEDICAID ==
[~2019-09-02 12:00] MED LIST changes: +GOOD200C PO; +MELATAB2 PO; +OMEP-172 PO; -OMEP20CA4 PO
== END 2019-09-10 ==
LOC: M OUTALCOH 12:00
PROVIDERS: ATTEND Psychiatry & Neurology Psychiatry
DX: F12.20 Cannabis dependence, uncomplicated (principal); F10.20 Alcohol dependence, uncomplicated; F17.200 Nicotine dependence, unspecified, uncomplicated
CPT/HCPCS: 90834; H0050

== ENCOUNTER 2019-09-16 06:31 | Day surgery (SDC) | payer MEDICARE, MEDICAID ==
[~2019-09-16] VITALS: Ht 180.3 cm; Wt 89.8 kg
[~2019-09-16 06:31] MED LIST changes: +NS 1,000 ML IV ONE
[2019-09-16] MEDS ORDERED: PROPOFOL 200 MG/20 ML VIAL As Ordered ONE ×2 (07:37→08:11)
--- NOTE | 2019-09-16 08:21 | ROOR ---
Patient Name: Jesse Arellano Procedure Date: 09/16/2019 7:34 AM Date of : 1960 Age: 59 Room: [facility] Gender: Male Note Status: Finalized Procedure: Colonoscopy Indications: Screening for colorectal malignant neoplasm Providers: Hans Morel MD Referring MD: Rina GARBER NP Requesting Provider: Medicines: Monitored Anesthesia Care Complications: No immediate complications. Procedure: Pre-Anesthesia Assessment: - Prior to the procedure, a History and Physical was performed, and patient medications and allergies were reviewed. The patient is competent. The risks and benefits of the procedure and the sedation options and risks were discussed with the patient. All questions were answered and informed consent was obtained. Patient identification and proposed procedure were verified by the physician, the nurse and the anesthesiologist in the procedure room. Mental Status Examination: alert and oriented. Airway Examination: normal oropharyngeal airway and neck mobility. Respiratory Examination: clear to auscultation. CV Examination: normal. Prophylactic Antibiotics: The patient does not require prophylactic antibiotics. Prior Anticoagulants: The patient has taken no previous anticoagulant or antiplatelet agents. ASA Grade Assessment: II - A patient with mild systemic disease. After reviewing the risks and benefits, the patient was deemed in satisfactory condition to undergo the procedure. The anesthesia plan was to use monitored anesthesia care (MAC). Immediately prior to administration of medications, the patient was re-assessed for adequacy to receive sedatives. The heart rate, respiratory rate, oxygen saturations, blood pressure, adequacy of pulmonary ventilation, and response to care were monitored throughout the procedure. The physical status of the patient was re-assessed after the procedure. The Colonoscope was introduced through the anus and advanced to the terminal ileum, with identification of the appendiceal orifice and IC valve. The colonoscopy was performed without difficulty. The patient tolerated the procedure well. The quality of the bowel preparation was good. The terminal ileum, ileocecal valve, appendiceal orifice, and rectum were photographed. Scope insertion time was 5 minutes. Scope withdrawal time was 9 minutes. The total duration of the procedure was 14 minutes. Findings: The perianal and digital rectal examinations were normal. The terminal ileum appeared normal. Two sessile polyps were found in the ascending colon. The polyps were 3 to 5 mm in size. These polyps were removed with a jumbo cold forceps. Resection and retrieval were complete. Verification of patient identification for the specimen was done by the physician and nurse using the patient's name, date and medical record number. Estimated blood loss was minimal. Two sessile polyps were found in the proximal transverse colon. The polyps were 7 to 12 mm in size. These polyps were removed with a cold snare. Resection and retrieval were complete. Four sessile polyps were found in the sigmoid colon and transverse colon. The polyps were 5 to 8 mm in size. These polyps were removed with a cold snare. Resection and retrieval were complete. A tattoo was seen in the proximal ascending colon. A post-polypectomy scar was found at the tattoo site. Multiple small and large-mouthed diverticula were found in the sigmoid colon. There was no evidence of diverticular bleeding. Non-bleeding external and internal hemorrhoids were found during retroflexion. The hemorrhoids were small. Impression: - The examined portion of the ileum was normal. - Two 3 to 5 mm polyps in the ascending colon, removed with a jumbo cold forceps. Resected and retrieved. - Two 7 to 12 mm polyps in the proximal transverse colon, removed with a cold snare. Resected and retrieved. - Four 5 to 8 mm polyps in the sigmoid colon and in the transverse colon, removed with a cold snare. Resected and retrieved. - A tattoo was seen in the proximal ascending colon. A post-polypectomy scar was found at the tattoo site. - Moderate diverticulosis in the sigmoid colon. There was no evidence of diverticular bleeding. - Non-bleeding external and internal hemorrhoids. Recommendation: - Patient has a contact number available for emergencies. The signs and symptoms of potential delayed complications were discussed with the patient. Return to normal activities tomorrow. Written discharge instructions were provided to the patient. - High fiber diet. - Continue present medications. - Await pathology results. - Repeat colonoscopy in 3 years for surveillance based on pathology results. - Telephone GI clinic for pathology results in 2 weeks. - Return to primary care physician. Hans Morel MD Hans Morel MD 09/16/2019 8:20:35 AM Electronically signed by Hans Morel MD Number of Addenda: 0 Note Initiated On: 09/16/2019 7:34 AM Estimated Blood Loss: Estimated blood loss was minimal.
[2019-09-16 08:30] VITALS: BP 120/87
== END 2019-09-16 08:39 | disposition home or self-care (01) ==
LOC: M OPP 06:31
PROVIDERS: ATTEND Internal Medicine Gastroenterology
DX: Z12.11 Encounter for screening for malignant neoplasm of colon (principal); K64.8 Other hemorrhoids; D12.2 Benign neoplasm of ascending colon; D12.5 Benign neoplasm of sigmoid colon; D12.3 Benign neoplasm of transverse colon; K57.30 Diverticulosis of large intestine without perforation or abscess without bleeding; F17.210 Nicotine dependence, cigarettes, uncomplicated; Z79.899 Other long term (current) drug therapy; Z88.8 Allergy status to other drugs, medicaments and biological substances

== ENCOUNTER → 2019-10-11 | Outpatient (RCR) | payer MEDICARE, MEDICAID ==
[~2019-10-11] MED LIST changes: -FLUP10TA PO; +FLUP10TA11 PO; -NS 1,000 ML IV ONE; -OMEP-172 PO; +OMEP1CAP73 PO
== END ==
LOC: M OUTALCOH 09-17 14:27
PROVIDERS: ATTEND Psychiatry & Neurology Psychiatry
DX: F12.20 Cannabis dependence, uncomplicated (principal); F10.20 Alcohol dependence, uncomplicated; F17.200 Nicotine dependence, unspecified, uncomplicated

== ENCOUNTER 2019-11-05 15:00 | Outpatient (RCR) | payer MEDICARE, MEDICAID | END 2019-11-09 | LOC: M OUTALCOH 15:00 | PROVIDERS: ATTEND Psychiatry & Neurology Addiction Medicine | DX: F10.20 Alcohol dependence, uncomplicated (principal); F12.20 Cannabis dependence, uncomplicated; F17.200 Nicotine dependence, unspecified, uncomplicated ==

== ENCOUNTER → 2019-12-10 | Outpatient (RCR) | payer MEDICARE, MEDICAID | LOC: M OUTALCOH 11-14 09:59 | PROVIDERS: ATTEND Psychiatry & Neurology Addiction Medicine | DX: F10.20 Alcohol dependence, uncomplicated (principal); F12.20 Cannabis dependence, uncomplicated; F17.200 Nicotine dependence, unspecified, uncomplicated ==

== ENCOUNTER → 2019-12-27 | Outpatient (REF) | payer MEDICARE, MEDICAID ==
[2019-12-27 13:24] LABS: BASO % 0.2 % (0.0-1.0); EOS # 0.2 10^3/uL (0.0-0.5); EOS % 2.3 % (0.0-3.0); HEMATOCRIT 44.6 % (42.0-52.0); HEMOGLOBIN 14.9 g/dl (13.5-17.5); LYMPH # 2.5 10^3/uL (1.5-5.0); LYMPH % 29.5 % (24.0-44.0); MEAN CORPUSCULAR HEMOGLOBIN 30.5 pg (27.0-33.0); MEAN CORPUSCULAR HGB CONC 33.4 g/dl (32.0-36.5); MEAN CORPUSCULAR VOLUME 91.4 fl (80.0-96.0); MONO # 0.7 10^3/uL (0.0-0.8); MONO % 8.7 % (0.0-5.0); NEUTROPHILS # 4.9 10^3/uL (1.5-8.5); NEUTROPHILS % 58.9 % (36.0-66.0); PLATELET COUNT, AUTOMATED 258 10^3/uL (150-450); RED BLOOD COUNT 4.88 10^6/uL (4.30-6.10); WHITE BLOOD COUNT 8.3 10^3/uL (4.0-10.0)
[2019-12-27 13:41] LABS: BLOOD UREA NITROGEN 19 MG/DL (7-18); CALCIUM LEVEL 9.4 MG/DL (8.8-10.2); CARBON DIOXIDE LEVEL 30 MEQ/L (21-32); CHLORIDE LEVEL 105 MEQ/L (98-107); CREATININE FOR GFR 0.63 MG/DL (0.70-1.30); GLOMERULAR FILTRATION RATE > 60.0 (>49); GLUCOSE, FASTING 100 MG/DL (70-100); POTASSIUM SERUM 4.7 MEQ/L (3.5-5.1); SODIUM LEVEL 139 MEQ/L (136-145)
[2019-12-27 13:42] LABS: ALBUMIN 3.5 GM/DL (3.2-5.2); ALT/SGPT 17 U/L (12-78); BILIRUBIN,TOTAL 0.2 MG/DL (0.2-1.0); CHOLESTEROL LEVEL 190 MG/DL (<200); CHOLESTEROL RISK RATIO 4.042 (<5); FOLATE 10.2 NG/ML; FREE T4 0.85 NG/DL (0.76-1.46); HDL CHOLESTEROL 47 MG/DL (>40); LDL CHOLESTEROL 129 MG/DL (<100); MAGNESIUM LEVEL 1.7 MG/DL (1.8-2.4); NON-HDL-C 143 MG/DL; TOTAL 25(OH) VITAMIN D 29.8 NG/ML (30.0-100.0); TOTAL PROTEIN 6.6 GM/DL (6.4-8.2); TRIGLYCERIDES LEVEL 71 MG/DL (<150); VITAMIN B12 LEVEL 749 PG/ML
[2019-12-27 14:00] LABS: HEMOGLOBIN A1c 6.1 %
== END ==
LOC: M LAB REF 12:43
PROVIDERS: ATTEND Nurse Practitioner Family
DX: K21.9 Gastro-esophageal reflux disease without esophagitis (principal); E78.70 Disorder of bile acid and cholesterol metabolism, unspecified; I10 Essential (primary) hypertension; Z72.0 Tobacco use; E66.3 Overweight; E07.9 Disorder of thyroid, unspecified

== ENCOUNTER → 2019-12-27 | Outpatient (REF) | payer MEDICARE, MEDICAID ==
[2019-12-27 12:53] LABS: APPEARANCE, URINE CLEAR (CLEAR); BACTERIA, URINE AUTO NEGATIVE (NEGATIVE); BILIRUBIN, URINE AUTO NEGATIVE (NEGATIVE); BLOOD, URINE BLOOD NEGATIVE (NEGATIVE); COLOR, URINE YELLOW (YELLOW); GLUCOSE, URINE (UA) AUTO NEGATIVE (NEGATIVE); KETONE, URINE AUTO NEGATIVE (NEGATIVE); LEUKOCYTE ESTERASE, URINE AUTO NEGATIVE (NEGATIVE); MUCUS, URINE SMALL (NEGATIVE); NITRITE, URINE AUTO NEGATIVE (NEGATIVE); PROTEIN, URINE AUTO NEGATIVE (NEGATIVE); RBC, URINE AUTO 1 /HPF (0-3); SPECIFIC GRAVITY URINE AUTO 1.018 (1.002-1.035); SQUAMOUS EPITHELIAL CELL UR AU 0 /HPF (0-6); WBC, URINE AUTO 1 /HPF (0-3)
== END ==
LOC: M LAB REF 12:35
PROVIDERS: ATTEND Nurse Practitioner Family
DX: K21.9 Gastro-esophageal reflux disease without esophagitis (principal); E78.70 Disorder of bile acid and cholesterol metabolism, unspecified; I10 Essential (primary) hypertension; Z72.0 Tobacco use; E66.3 Overweight

== ENCOUNTER 2019-12-31 14:00 | Outpatient (RCR) | payer MEDICARE, MEDICAID | END 2020-01-09 | LOC: M OUTALCOH 14:00 | PROVIDERS: ATTEND Psychiatry & Neurology Addiction Medicine | DX: F12.20 Cannabis dependence, uncomplicated (principal); F10.20 Alcohol dependence, uncomplicated; F17.200 Nicotine dependence, unspecified, uncomplicated | CPT/HCPCS: 90832; H0050 ==

== ENCOUNTER → 2019-12-31 | Outpatient (CLI) | payer MEDICARE, MEDICAID ==
[2019-12-31 10:31] LABS: BASO % 0.4 % (0.0-1.0); EOS # 0.2 10^3/uL (0.0-0.5); EOS % 2.5 % (0.0-3.0); HEMATOCRIT 44.7 % (42.0-52.0); LYMPH # 2.8 10^3/uL (1.5-5.0); LYMPH % 38.3 % (24.0-44.0); MEAN CORPUSCULAR HGB CONC 33.6 g/dl (32.0-36.5); MEAN CORPUSCULAR VOLUME 92.4 fl (80.0-96.0); MONO # 0.6 10^3/uL (0.0-0.8); MONO % 8.4 % (0.0-5.0); NEUTROPHILS # 3.6 10^3/uL (1.5-8.5); NEUTROPHILS % 50.3 % (36.0-66.0); PLATELET COUNT, AUTOMATED 248 10^3/uL (150-450); RED BLOOD COUNT 4.84 10^6/uL (4.30-6.10); WHITE BLOOD COUNT 7.2 10^3/uL (4.0-10.0)
[2019-12-31 11:18] LABS: ALBUMIN 3.7 GM/DL (3.2-5.2); ALT/SGPT 19 U/L (12-78); BILIRUBIN,TOTAL 0.5 MG/DL (0.2-1.0); BLOOD UREA NITROGEN 11 MG/DL (7-18); CALCIUM LEVEL 9.2 MG/DL (8.8-10.2); CARBON DIOXIDE LEVEL 34 MEQ/L (21-32); CHLORIDE LEVEL 100 MEQ/L (98-107); CHOLESTEROL LEVEL 188 MG/DL (<200); CHOLESTEROL RISK RATIO 3.357 (<5); CREATININE FOR GFR 0.76 MG/DL (0.70-1.30); FREE T4 0.94 NG/DL (0.76-1.46); GLOMERULAR FILTRATION RATE > 60.0 (>49); GLUCOSE, FASTING 82 MG/DL (70-100); HDL CHOLESTEROL 56 MG/DL (>40); LDL CHOLESTEROL 118 MG/DL (<100); NON-HDL-C 132 MG/DL; POTASSIUM SERUM 4.5 MEQ/L (3.5-5.1); SODIUM LEVEL 136 MEQ/L (136-145); TOTAL PROTEIN 6.9 GM/DL (6.4-8.2); TRIGLYCERIDES LEVEL 70 MG/DL (<150); VALPROIC ACID (DEPAKOTE) 54.4 UG/ML (50.0-100.0)
== END ==
LOC: M LAB 09:19
PROVIDERS: ATTEND Nurse Practitioner Psychiatric/Mental Health
DX: F20.9 Schizophrenia, unspecified (principal); E78.00 Pure hypercholesterolemia, unspecified; E07.9 Disorder of thyroid, unspecified

== ENCOUNTER 2020-02-04 13:39 | Outpatient (RCR) | payer MEDICARE, MEDICAID | END 2020-02-09 | LOC: M OUTALCOH 13:39 | PROVIDERS: ATTEND Psychiatry & Neurology Addiction Medicine | DX: F12.20 Cannabis dependence, uncomplicated (principal); F10.20 Alcohol dependence, uncomplicated; F17.200 Nicotine dependence, unspecified, uncomplicated | CPT/HCPCS: 90832; 90834; H0050 ==

== ENCOUNTER → 2020-03-10 | Outpatient (RCR) | payer MEDICARE, MEDICAID | LOC: M OUTALCOH 02-12 13:48 | PROVIDERS: ATTEND Psychiatry & Neurology Addiction Medicine | DX: F12.20 Cannabis dependence, uncomplicated (principal); F10.20 Alcohol dependence, uncomplicated; F17.200 Nicotine dependence, unspecified, uncomplicated ==

== ENCOUNTER → 2020-03-30 | Outpatient (REF) | payer MEDICARE, MEDICAID ==
[~2020-03-30] MED LIST changes: +IBUP1TAB6 PO; +MELA3TAB10 PO; +MELA3TAB44 PO; -MELATAB2 PO; +PANT40TA29 PO; -PANT40TA3 PO; +VENTAER INH
[2020-03-30 12:31] LABS: BASO % 0.2 % (0.0-1.0); EOS # 0.2 10^3/uL (0.0-0.5); HEMATOCRIT 43.5 % (42.0-52.0); HEMOGLOBIN 14.6 g/dl (13.5-17.5); LYMPH # 2.7 10^3/uL (1.5-5.0); LYMPH % 33.7 % (24.0-44.0); MEAN CORPUSCULAR HEMOGLOBIN 31.1 pg (27.0-33.0); MEAN CORPUSCULAR HGB CONC 33.6 g/dl (32.0-36.5); MEAN CORPUSCULAR VOLUME 92.6 fl (80.0-96.0); MONO # 0.7 10^3/uL (0.0-0.8); MONO % 8.6 % (0.0-5.0); NEUTROPHILS # 4.4 10^3/uL (1.5-8.5); PLATELET COUNT, AUTOMATED 264 10^3/uL (150-450); WHITE BLOOD COUNT 8.1 10^3/uL (4.0-10.0)
[2020-03-30 12:36] LABS: ALBUMIN 3.5 GM/DL (3.2-5.2); ALT/SGPT 19 U/L (12-78); BILIRUBIN,TOTAL 0.5 MG/DL (0.2-1.0); BLOOD UREA NITROGEN 19 MG/DL (7-18); CALCIUM LEVEL 9.2 MG/DL (8.8-10.2); CARBON DIOXIDE LEVEL 30 MEQ/L (21-32); CHLORIDE LEVEL 104 MEQ/L (98-107); CHOLESTEROL LEVEL 196 MG/DL (<200); CREATININE FOR GFR 0.71 MG/DL (0.70-1.30); GLOMERULAR FILTRATION RATE > 60.0 (>49); GLUCOSE, FASTING 98 MG/DL (70-100); HDL CHOLESTEROL 47 MG/DL (>40); LDL CHOLESTEROL 138 MG/DL (<100); NON-HDL-C 149 MG/DL; POTASSIUM SERUM 4.4 MEQ/L (3.5-5.1); SODIUM LEVEL 140 MEQ/L (136-145); TOTAL PROTEIN 6.6 GM/DL (6.4-8.2); TRIGLYCERIDES LEVEL 55 MG/DL (<150)
[2020-03-30 12:45] LABS: HEMOGLOBIN A1c 5.6 %
== END ==
LOC: M LAB REF 11:57
PROVIDERS: ATTEND Nurse Practitioner Family
DX: E78.5 Hyperlipidemia, unspecified (principal); R73.03 Prediabetes; Z13.9 Encounter for screening, unspecified; E78.70 Disorder of bile acid and cholesterol metabolism, unspecified; I10 Essential (primary) hypertension; Z72.0 Tobacco use

== ENCOUNTER → 2020-04-10 | Outpatient (RCR) | payer MEDICARE, MEDICAID | LOC: M OUTALCOH 03-20 10:00 | PROVIDERS: ATTEND Psychiatry & Neurology Addiction Medicine | DX: F10.20 Alcohol dependence, uncomplicated (principal); F12.20 Cannabis dependence, uncomplicated; F17.200 Nicotine dependence, unspecified, uncomplicated ==

== ENCOUNTER 2020-04-17 15:15 | Inpatient (IN) | payer MEDICAID, MEDICARE ==
[~2020-04-17 15:15] MED LIST changes: -IBUP1TAB6 PO; -MELA3TAB44 PO; -VENTAER INH
[2020-04-18] MEDS ORDERED: lisinopriL 5 MG TAB As Ordered ONE (08:09)
[2020-04-18] MEDS ORDERED: DIVALPROEX 500 MG TAB ONE ×2 (08:09→21:05)
[2020-04-18] MEDS ORDERED: DIVALPROEX 500 MG TAB As Ordered ONE ×2 (08:09→21:05)
[2020-04-18] MEDS ORDERED: lisinopriL 5 MG TAB ONE (08:09)
[2020-04-18] MEDS ORDERED: GABAPENTIN 300 MG CAP ONE ×2 (08:09→21:05)
[2020-04-18] MEDS ORDERED: PANTOPRAZOLE 40MG TAB (PROTONIX) ONE (08:09)
[2020-04-18] MEDS ORDERED: VENLAFAXINE **XR** 75MG CAPSULE ONE (08:09)
[2020-04-18] MEDS ORDERED: PANTOPRAZOLE 40MG TAB (PROTONIX) As Ordered ONE (08:10)
[2020-04-18] MEDS ORDERED: VENLAFAXINE **XR** 75MG CAPSULE As Ordered ONE (08:10)
[2020-04-18] MEDS ORDERED: GABAPENTIN 300 MG CAP As Ordered ONE ×2 (08:10→21:06)
[2020-04-18] MEDS ORDERED: traZODone 50 MG TAB As Ordered ONE (23:24)
[2020-04-18] MEDS ORDERED: traZODone 50 MG TAB ONE (23:24)
[2020-04-19] MEDS ORDERED: lisinopriL 5 MG TAB As Ordered ONE (07:27)
[2020-04-19] MEDS ORDERED: DIVALPROEX 500 MG TAB As Ordered ONE (07:27)
[2020-04-19] MEDS ORDERED: VENLAFAXINE **XR** 75MG CAPSULE ONE (07:27)
[2020-04-19] MEDS ORDERED: GABAPENTIN 300 MG CAP ONE ×2 (07:27→20:52)
[2020-04-19] MEDS ORDERED: PANTOPRAZOLE 40MG TAB (PROTONIX) ONE (07:27)
[2020-04-19] MEDS ORDERED: lisinopriL 5 MG TAB ONE (07:27)
[2020-04-19] MEDS ORDERED: DIVALPROEX 500 MG TAB ONE ×2 (07:27→20:52)
[2020-04-19] MEDS ORDERED: PANTOPRAZOLE 40MG TAB (PROTONIX) As Ordered ONE (07:28)
[2020-04-19] MEDS ORDERED: GABAPENTIN 300 MG CAP As Ordered ONE (07:28)
[2020-04-19] MEDS ORDERED: VENLAFAXINE **XR** 75MG CAPSULE As Ordered ONE (07:28)
[2020-04-20] MEDS ORDERED: lisinopriL 10 MG TAB ONE (08:44)
[2020-04-20] MEDS ORDERED: DIVALPROEX 500 MG TAB As Ordered ONE (08:44)
[2020-04-20] MEDS ORDERED: VENLAFAXINE **XR** 75MG CAPSULE ONE (08:44)
[2020-04-20] MEDS ORDERED: GABAPENTIN 300 MG CAP As Ordered ONE (08:44)
[2020-04-20] MEDS ORDERED: GABAPENTIN 300 MG CAP ONE (08:44)
[2020-04-20] MEDS ORDERED: lisinopriL 10 MG TAB As Ordered ONE (08:44)
[2020-04-20] MEDS ORDERED: DIVALPROEX 500 MG TAB ONE (08:44)
[2020-04-20] MEDS ORDERED: PANTOPRAZOLE 40MG TAB (PROTONIX) ONE (08:44)
[2020-04-20] MEDS ORDERED: VENLAFAXINE **XR** 75MG CAPSULE As Ordered ONE (08:45)
[2020-04-20] MEDS ORDERED: PANTOPRAZOLE 40MG TAB (PROTONIX) As Ordered ONE (08:45)
[2020-05-31 16:29] LABS: BASO % 0.4 % (0.0-1.0); EOS # 0.2 10^3/uL (0.0-0.5); EOS % 2.7 % (0.0-3.0); HEMATOCRIT 39.3 % (42.0-52.0); HEMOGLOBIN 13.3 g/dl (13.5-17.5); LYMPH # 2.8 10^3/uL (1.5-5.0); LYMPH % 34.6 % (24.0-44.0); MEAN CORPUSCULAR HEMOGLOBIN 31.2 pg (27.0-33.0); MEAN CORPUSCULAR HGB CONC 33.8 g/dl (32.0-36.5); MEAN CORPUSCULAR VOLUME 92.3 fl (80.0-96.0); MONO # 0.8 10^3/uL (0.0-0.8); MONO % 10.2 % (0.0-5.0); NEUTROPHILS # 4.3 10^3/uL (1.5-8.5); NEUTROPHILS % 51.7 % (36.0-66.0); PLATELET COUNT, AUTOMATED 227 10^3/uL (150-450); RED BLOOD COUNT 4.26 10^6/uL (4.30-6.10); WHITE BLOOD COUNT 8.2 10^3/uL (4.0-10.0)
[2020-05-31 20:41] LABS: APPEARANCE, URINE CLEAR (CLEAR); BACTERIA, URINE AUTO NEGATIVE (NEGATIVE); BILIRUBIN, URINE AUTO NEGATIVE (NEGATIVE); BLOOD, URINE BLOOD NEGATIVE (NEGATIVE); COLOR, URINE YELLOW (YELLOW); GLUCOSE, URINE (UA) AUTO NEGATIVE (NEGATIVE); KETONE, URINE AUTO NEGATIVE (NEGATIVE); LEUKOCYTE ESTERASE, URINE AUTO NEGATIVE (NEGATIVE); NITRITE, URINE AUTO NEGATIVE (NEGATIVE); PROTEIN, URINE AUTO NEGATIVE (NEGATIVE); RBC, URINE AUTO 0 /HPF (0-3); SPECIFIC GRAVITY URINE AUTO 1.009 (1.002-1.035); SQUAMOUS EPITHELIAL CELL UR AU 0 /HPF (0-6); UROBILINOGEN, URINE AUTO 0.2 mg/dL (0.0-2.0); WBC, URINE AUTO 0 /HPF (0-3)
[2020-07-06 12:38] LABS: AMPHETAMINES LEVEL URINE NEGATIVE (NEGATIVE); BARBITURATES URINE NEGATIVE (NEGATIVE); BENZODIAZEPINES URINE NEGATIVE (NEGATIVE); CANNABINOIDS URINE POSITIVE (NEGATIVE); COCAINE METABOLITE URINE NEGATIVE (NEGATIVE); METHADONE URINE NEGATIVE (NEGATIVE); OPIATES URINE NEGATIVE (NEGATIVE); PHENCYCLIDINE URINE NEGATIVE (NEGATIVE)
[2020-07-06 12:38] LABS: ACETAMINOPHEN LEVEL < 2.0 UG/ML (10.0-30.0); ALBUMIN 3.4 GM/DL (3.2-5.2); ALT/SGPT 16 U/L (12-78); BILIRUBIN,DIRECT < 0.1 MG/DL (0.0-0.2); BILIRUBIN,TOTAL 0.3 MG/DL (0.2-1.0); BLOOD UREA NITROGEN 9 MG/DL (7-18); CALCIUM LEVEL 8.8 MG/DL (8.8-10.2); CARBON DIOXIDE LEVEL 32 MEQ/L (21-32); CHLORIDE LEVEL 99 MEQ/L (98-107); CREATININE FOR GFR 0.63 MG/DL (0.70-1.30); ETHYL ALCOHOL (ETHANOL) 0.003 % (0.000-0.010); GLOMERULAR FILTRATION RATE > 60.0 (>49); GLUCOSE, FASTING 87 MG/DL (70-100); POTASSIUM SERUM 4.8 MEQ/L (3.5-5.1); SODIUM LEVEL 134 MEQ/L (136-145); TOTAL PROTEIN 6.4 GM/DL (6.4-8.2); TROPONIN I < 0.02 NG/ML (< 0.10)
--- NOTE | 2020-07-09 20:57 | MHDSPDOC ---
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 It appears quite clear that the patient was primarily suffering from alcohol problems and not a resurgence of his schizophrenia. He did well on the unit, was placed on his previous medications, and was observed without any incidents. He was friendly, amenable, and social in the unit, with no signs of resurgence of his psychosis and no suicidality. He explained his suicidality was simply to getting in here. DISCHARGE ASSESSMENT[improved] Legal status considerations: The patient at the time of discharge did not meet criteria for involuntary admission/extension due to having a [normal] mental status exam, [fair] insight into the situation, They are engaged in the discharge process, as well as being friendly and amenable in behavioral control and havent been engaging in any observed concerning behavior or ideation recently. They decline voluntary extension/admission at this time and must be discharged in good brittany, as Im unable to make a case for holding the patient against their will. They may have historical risk factors of admissions and other interactions with psychiatry however, those are not modifiable from a clinical perspective. The patient will need to be discharged in good brtitany. MENTAL STATUS EXAMINATION ON DISCHARGE: [General: Well dressed with good hygiene Speech: Spontaneous and fluid Thought processes: Linear and logical Thought content: Future orientated Abstract reasoning, and computation: Intact Description of associations: Intact Description of abnormal or psychotic thoughts:Denies any suicidal or homicidal ideation. Denies any auditory or visual hallucinations. Does not appear to be responding to internal stimuli. Does not appear to be endorsing any bizarre or paranoid ideation. Judgment: fair Insight: fair Orientation: Alert and orientated 3 Recent and remote memory: Intact Attention span and concentration: Intact Fund of knowledge: Adequate Mood: "okay" Affect: Euthymic with a full range] PLAN/FOLLOWUP ARRANGEMENTS: Follow up appointments made (PCP and MH in 5 days of D/C date) and safety plan completed. Safety Planning aspects completed prior to discharge [RN reviewed crisis hotline information and other aspects to empower patient to access care in interim before next appointment.] The amount of time spent in the coordination of care for this patient was approximately 30 minutes. Medications Scheduled Divalproex Sodium (Depakote) 500 Mg Tablet.dr, 1,000 MG PO BID, (Reported) Gabapentin (Gabapentin) 300 Mg Capsule, 300 MG PO BID, (Reported) Lisinopril (Lisinopril) 5 Mg Tablet, 5 MG PO DAILY, (Reported) Paliperidone Palmitate (Invega Trinza) 819 Mg/2.625 Ml Syringe, 819 MG IM Q3M, (Reported) Pantoprazole Sodium (Pantoprazole Sodium) 40 Mg Tab, 40 MG PO DAILY, (Reported) Valbenazine Tosylate (Ingrezza) 40 Mg Capsule, 40 MG PO QAM, (Reported) Venlafaxine HCl (Venlafaxine HCl ER) 75 Mg Cap.er.24h, 150 MG PO DAILY, (Reported) Scheduled PRN Albuterol Sulfate (Ventolin Hfa) 18 Gm Hfa.aer.ad, 2 PUFF INH Q4H PRN for SOB/WHEEZING, (Reported) Ibuprofen (Ibuprofen) 600 Mg Tablet, 600 MG PO TID PRN for PAIN, (Reported) Melatonin (Melatonin) 3 Mg Tablet, 6 MG PO QHS PRN for SLEEP, (Reported) Trazodone HCl (Trazodone HCl) 50 Mg Tablet, 50 MG PO QHS PRN for SLEEP, (Reported) Allergies Coded Allergies: chlorpromazine (Verified Allergy, Severe, nausea/tongue swelling , 06/17/20) benztropine (Verified Allergy, Unknown, 06/17/20) quetiapine (Verified Allergy, Unknown, 06/17/20) haloperidol (Verified Adverse Reaction, Intermediate, blurry vision/seizures , 06/17/20) GAURANG LEYVA DO Jul 09, 2020 20:57
== END 2020-04-20 14:36 | disposition home or self-care (01) | DRG 897 ==
LOC: M ED 15:15 → M PSY 21:30
PROVIDERS: ADMIT Psychiatry & Neurology Addiction Medicine; ATTEND Psychiatry & Neurology Addiction Medicine
DX: F10.99 Alcohol use, unspecified with unspecified alcohol-induced disorder (principal); F20.9 Schizophrenia, unspecified; Z79.899 Other long term (current) drug therapy; Z88.8 Allergy status to other drugs, medicaments and biological substances

== ENCOUNTER 2020-05-08 11:00 | Outpatient (RCR) | payer MEDICARE, MEDICAID | END 2020-05-11 | LOC: M OUTALCOH 11:00 | PROVIDERS: ATTEND Psychiatry & Neurology Addiction Medicine | DX: F12.20 Cannabis dependence, uncomplicated (principal); F10.20 Alcohol dependence, uncomplicated; F17.200 Nicotine dependence, unspecified, uncomplicated ==

== ENCOUNTER 2020-06-05 11:00 | Outpatient (RCR) | payer MEDICARE, MEDICAID | END 2020-06-10 | LOC: M OUTALCOH 11:00 | PROVIDERS: ATTEND Psychiatry & Neurology Addiction Medicine | DX: F12.20 Cannabis dependence, uncomplicated (principal); F10.20 Alcohol dependence, uncomplicated; F17.200 Nicotine dependence, unspecified, uncomplicated | CPT/HCPCS: 90832; 90834; H0001 ==

== ENCOUNTER 2020-06-17 09:41 | Inpatient (IN) | payer MEDICAID, MEDICARE ==
[~2020-06-17] VITALS: Ht 180.3 cm; Wt 90.0 kg
[2020-06-17] MEDS ORDERED: VENTAER INH (10:09)
[2020-06-17 11:59] LABS: HEMATOCRIT 39.5 % (42.0-52.0); HEMOGLOBIN 13.3 g/dl (13.5-17.5); MEAN CORPUSCULAR HEMOGLOBIN 30.9 pg (27.0-33.0); MEAN CORPUSCULAR HGB CONC 33.7 g/dl (32.0-36.5); MEAN CORPUSCULAR VOLUME 91.6 fl (80.0-96.0); PLATELET COUNT, AUTOMATED 245 10^3/uL (150-450); RED BLOOD COUNT 4.31 10^6/uL (4.30-6.10); WHITE BLOOD COUNT 7.5 10^3/uL (4.0-10.0)
[2020-06-17 12:11] LABS: AMPHETAMINES LEVEL URINE NEGATIVE (NEGATIVE); BARBITURATES URINE NEGATIVE (NEGATIVE); BENZODIAZEPINES URINE NEGATIVE (NEGATIVE); CANNABINOIDS URINE POSITIVE (NEGATIVE); COCAINE METABOLITE URINE NEGATIVE (NEGATIVE); METHADONE URINE NEGATIVE (NEGATIVE); OPIATES URINE NEGATIVE (NEGATIVE); PHENCYCLIDINE URINE NEGATIVE (NEGATIVE)
[2020-06-17 12:23] LABS: ACETAMINOPHEN LEVEL < 2.0 UG/ML (10.0-30.0); ALBUMIN 3.8 GM/DL (3.2-5.2); ALT/SGPT 20 U/L (12-78); BILIRUBIN,DIRECT < 0.1 MG/DL (0.0-0.2); BILIRUBIN,TOTAL 0.2 MG/DL (0.2-1.0); BLOOD UREA NITROGEN 18 MG/DL (7-18); CARBON DIOXIDE LEVEL 32 MEQ/L (21-32); CHLORIDE LEVEL 97 MEQ/L (98-107); ETHYL ALCOHOL (ETHANOL) < 0.003 % (0.000-0.010); GLOMERULAR FILTRATION RATE > 60.0 (>49); GLUCOSE, FASTING 103 MG/DL (70-100); POTASSIUM SERUM 4.7 MEQ/L (3.5-5.1); SALICYLATE LEVEL 2.4 MG/DL (5.0-30.0); SODIUM LEVEL 133 MEQ/L (136-145); TOTAL PROTEIN 6.8 GM/DL (6.4-8.2)
[2020-06-17] MEDS ORDERED: IBUP1TAB6 PO (14:47)
[2020-06-17] MEDS ORDERED: MELA3TAB44 PO (14:47)
[2020-06-17] MEDS ORDERED: ACETAMINOPHEN TAB 650MG DOSE (2X325MG) PO PRN (16:30)
[2020-06-17] MEDS ORDERED: MAALOX 30 ML SUSP *UDC PO PRN (16:30)
[2020-06-17] MEDS ORDERED: IBUPROFEN 600MG TAB PO PRN (16:30)
[2020-06-17] MEDS ORDERED: ALBUTEROL 90 MCG/ACT 8GM HFA INHALER INH PRN (16:30)
[2020-06-17] MEDS ORDERED: MOM 30ML SUSPENSION UDC PO PRN (16:30)
[2020-06-17] MEDS ORDERED: traZODone 50 MG TAB PO PRN (16:30)
[2020-06-17 17:02] VITALS: BP 178/87
[2020-06-17] MEDS: DIVALPROEX 500 MG TAB PO SCH (21:00)
[2020-06-17] MEDS: GABAPENTIN 300 MG CAP PO SCH (21:00)
[2020-06-18] MEDS: NICOTINE 21MG/24HR 1 EA TRANSDERMAL TD SCH ×2 (09:00→10:18)
[2020-06-18] MEDS: DIVALPROEX 500 MG TAB PO SCH ×2 (10:17→21:03)
[2020-06-18] MEDS: PANTOPRAZOLE 40MG TAB (PROTONIX) PO SCH (10:17)
[2020-06-18] MEDS: GABAPENTIN 300 MG CAP PO SCH ×2 (10:18→21:02)
[2020-06-18] MEDS: VENLAFAXINE **XR** 75MG CAPSULE PO SCH (10:18)
[2020-06-18] MEDS: lisinopriL 5 MG TAB PO SCH (10:19)
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
[2020-06-19 06:19] VITALS: BP 131/69
[2020-06-19] MEDS: NICOTINE 21MG/24HR 1 EA TRANSDERMAL TD SCH (09:00)
[2020-06-19] MEDS: lisinopriL 5 MG TAB PO SCH (09:50)
[2020-06-19] MEDS: GABAPENTIN 300 MG CAP PO SCH ×2 (09:50→21:00)
[2020-06-19] MEDS: VENLAFAXINE **XR** 75MG CAPSULE PO SCH (09:51)
[2020-06-19] MEDS: DIVALPROEX 500 MG TAB PO SCH ×2 (09:51→21:00)
[2020-06-19] MEDS: PANTOPRAZOLE 40MG TAB (PROTONIX) PO SCH (09:51)
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
--- NOTE | 2020-06-19 12:41 | MHIPNPDOC ---
[facility] Progress Note Progress Note DATE OF SERVICE: 06/19/20 HISTORY: Patient is a 60 -year-old , male, who brought in on a 9.45 due to increasing bizarre and disorganized thought. Patient had become non-compl iant with medications and started to have a decline in mentation and staff at [facility] reported that he was decompensating. Patient is observed to be calm and cooperative in the interview and states he has an AOT order. Doesn't want to stay on medications just in case he has a girlfriend. States he has a girlfriend and he cannot take his medications due to the side effects. Upset because he is being mandated to stay on medications. Ruminative about his AOT orders. VITAL SIGNS: See below. NEW TEST RESULTS: CURRENT MEDICATIONS: See below. MENTAL STATUS EXAMINATION: Patient is a 60-year old Single, Disabled, Domiciled male, who is calm and cooperative in the interview. He appears older than his stated age. He has a full magaña with missing teeth and poor dentition, poor hygiene and grooming, wearing hospital scrubs. He is not observed with psychomotor agitation or retardation. Speech: Is fast,n mildly pressured, tangential, circumstantial, flight of ideas Language skills are intact Thought processes including: disorganized, tangential. Thought content: denies depression, anxiety, suicidal/homicidal ideation, paranoia or mild delusions. Patient is grandiose and disorganized Abstract reasoning, and computation: unable to determine due to flight of ideas Description of associations: denies auditory or visual hallucinations Description of abnormal or psychotic thoughts: persecutory delusions that the government is ignoring his requests Judgment: limited/poor Insight: limited/poor Orientation: alert and oriented to person, place, time and situation Recent and remote memory: intact Attention span and concentration: poor Language: expansive Fund of knowledge: below average Mood: "I am doing ok, if you think I need to stay I will. Reports euthymic but is observed to be mildly dramatic Affect: congruent with being dramatic during dialogue DIAGNOSES: 1. Schizoaffective Disorder 2. Tobacco Use Disorder 3. Hypertension ASSESSMENT: Patient is tangential, circumstantial and disorganized in speech. He wants to be off AOT order, has fast, mildly pressured. States "I am good, I have so many complaints about these State because of no actions by Governor [place], I wrote an 84-page book to tell them what they need to do to these abandoned places, I just want freedom like Merrick Barros Jr. like in [place], [place], he broke the rules, like me I lost my rights. I don't hate jews. My son tells black jokes. I am not alcoholic, I don't do drugs my biggest problem is I am bisexual" Patient demonstrates poor insight, poor judgement, is disorganized and his symptoms are so tenuous that if he were discharged he would be readmitted to the hospital. It is difficult to redirect patient to questions and he does not answer them fully. He does not meet criteria for safety in the community due to his loose associations. MANAGEMENT PLAN: Continue hospitalization. Patient is requesting Ingrezza. Pharmacy does not carry it, TLS can bring his own in. TIME SPENT: 20 minutes. Vital Signs Vital Signs Date Time Temp Pulse Resp B/P (MAP) Pulse Ox O2 Delivery O2 Flow Rate FiO2 06/19/20 09:50 131/69 06/19/20 06:19 97.7 89 14 Room Air 06/17/20 17:02 100 Current Medications Current Medications Medications (Trade) Dose Ordered Sig/Sue Route PRN Reason Start Time Stop Time Status Last Admin Dose Admin Acetaminophen (Tylenol Tab) 650 mg Q6HP PRN PO HEADACHE or DISCOMFORT 06/17/20 16:30 Al Hydrox/Mg Hydrox/Simethicone (Mylanta) 30 ml Q4HP PRN PO HEARTBURN/INDIGESTION 06/17/20 16:30 Albuterol Sulfate (Proventil, Ventolin Hfa) 2 puff Q4H PRN INH SOB/WHEEZING 06/17/20 16:30 Divalproex Sodium (Depakote) 1,000 mg BID PO 06/17/20 21:00 06/19/20 09:51 Gabapentin (Neurontin) 300 mg BID PO 06/17/20 21:00 06/19/20 09:50 Home Med (Med Rec Complete!) ASDIRECTED XX 06/17/20 15:00 06/17/20 14:51 DC Ibuprofen (Advil) 600 mg TID PRN PO PAIN 06/17/20 16:30 Lisinopril (Prinivil) 5 mg DAILY PO 06/18/20 09:00 06/19/20 09:50 Magnesium Hydroxide (Milk Of Magnesia) 30 ml DAILYPRN PRN PO CONSTIPATION 06/17/20 16:30 Nicotine (Nicoderm Cq 21mg) 1 patch DAILY TD 06/18/20 09:00 Pantoprazole Sodium (Protonix) 40 mg DAILY PO 06/18/20 09:00 06/19/20 09:51 Trazodone HCl (Desyrel) 50 mg QHSP PRN PO INSOMNIA 06/17/20 16:30 Venlafaxine HCl (Effexor Xr) 150 mg DAILY PO 06/18/20 09:00 06/19/20 09:51 Allergies Coded Allergies: chlorpromazine (Verified Allergy, Severe, nausea/tongue swelling , 06/17/20) benztropine (Verified Allergy, Unknown, 06/17/20) quetiapine (Verified Allergy, Unknown, 06/17/20) haloperidol (Verified Adverse Reaction, Intermediate, blurry vision/seizures , 06/17/20) USHA HARMON NP Jun 19, 2020 12:10
[2020-06-19 17:57] VITALS: BP 129/79
[2020-06-20] MEDS: NICOTINE 21MG/24HR 1 EA TRANSDERMAL TD SCH (09:00)
[2020-06-20] MEDS: lisinopriL 5 MG TAB PO SCH (09:50)
[2020-06-20] MEDS: DIVALPROEX 500 MG TAB PO SCH ×2 (09:51→21:44)
[2020-06-20] MEDS: PANTOPRAZOLE 40MG TAB (PROTONIX) PO SCH (09:51)
[2020-06-20] MEDS: VENLAFAXINE **XR** 75MG CAPSULE PO SCH (09:51)
[2020-06-20] MEDS: GABAPENTIN 300 MG CAP PO SCH ×2 (09:52→21:44)
[2020-06-20 17:56] VITALS: BP 126/76
[2020-06-21 06:46] VITALS: BP 133/86
[2020-06-21] MEDS: NICOTINE 21MG/24HR 1 EA TRANSDERMAL TD SCH (09:00)
[2020-06-21] MEDS: PANTOPRAZOLE 40MG TAB (PROTONIX) PO SCH (09:13)
[2020-06-21] MEDS: GABAPENTIN 300 MG CAP PO SCH ×2 (09:13→20:53)
[2020-06-21] MEDS: VENLAFAXINE **XR** 75MG CAPSULE PO SCH (09:13)
[2020-06-21] MEDS: lisinopriL 5 MG TAB PO SCH (09:14)
[2020-06-21] MEDS: DIVALPROEX 500 MG TAB PO SCH ×2 (09:14→20:53)
--- NOTE | 2020-06-21 16:26 | MHIPN ---
DATE: 06/20/2020 The patient states "I made a mistake and I went off my medications." The patient is noticed to have pressured speech and very little insight about the reason why he was admitted. He says he slept okay, but he has some problem with occasional nightmares. MENTAL STATUS EXAMINATION: This patient is alert and oriented times three. Eye contact is fair. Psychomotor activity is poor. Speech is pressured. Mood is "good." Affect is flat. The patient denies suicidal or homicidal ideations. I did not elicit any delusions today. Insight and judgment poor. DIAGNOSIS: Schizoaffective disorder. TREATMENT PLAN: We will continue to monitor the patient for any ongoing psychotic symptoms, and we will titrate medications as indicated. MTDD
[2020-06-21 17:55] VITALS: BP 130/80
[2020-06-22 06:31] VITALS: BP 143/78
[2020-06-22] MEDS: NICOTINE 21MG/24HR 1 EA TRANSDERMAL TD SCH (09:00)
[2020-06-22] MEDS: lisinopriL 5 MG TAB PO SCH (10:09)
[2020-06-22] MEDS: VENLAFAXINE **XR** 75MG CAPSULE PO SCH (10:10)
[2020-06-22] MEDS: DIVALPROEX 500 MG TAB PO SCH ×2 (10:11→22:19)
[2020-06-22] MEDS: GABAPENTIN 300 MG CAP PO SCH ×2 (10:11→22:18)
[2020-06-22] MEDS: PANTOPRAZOLE 40MG TAB (PROTONIX) PO SCH (10:11)
--- NOTE | 2020-06-22 11:02 | MHIPNPDOC ---
[facility] Progress Note Progress Note DATE OF SERVICE: 06/22/20 HISTORY: Patient is a 60 year old single, disabled, domiciled, Male who resides at [facility]. Patient had been non-complaint with his medications and st arted to become manic, bizarre and delusional. VITAL SIGNS: See below. NEW TEST RESULTS: CURRENT MEDICATIONS: See below. MENTAL STATUS EXAMINATION: Patient is a 60-year old single, disabled, domiciled male, who is admitted to [facility] on a 9.39 after he stopped taking his AOT ordered medications and decompensated. In today's interview he is alert and oriented, dressed in hospital scrubs, hygiene and grooming is fair and is eye contact is good. He was awakened for this interview and he appears mildly drowsy during the evaluation, but calm, cooperative and pleasant. Speech: Is normal rate, tone and volume Language skills are intact Thought processes including: linear and goal oriented Thought content: denies depression, suicidal/homicidal ideation, planning or intent. He is not anxious, denies abnormal psychotic symptoms Abstract reasoning, and computation: Fair Description of associations: None notes, patient denies Description of abnormal or psychotic thoughts: None notes, patient denies Judgment: fair Insight: fair Orientation: alert and oriented to persona, place, time and situation Recent and remote memory: intact Attention span and concentration: fair Language: expansive Fund of knowledge: good Mood: "I am good" Affect: flat DIAGNOSES: 1. Schizoaffective Disorder 2. Tobacco Use Disorder 3. Hypertension ASSESSMENT: "I reduced my medications, but wasn't going to go off the medications. I don't like where I live. Wants to live in a different apartment in [place], [facility] wants him in supportive apartments but he wants to save more of his money. Supportive apartments would take more of his money. He states that according to TLS he has to do what the AOT orders. Patient is less hyperverbal, tangential and is observed less hypomanic. He is improved. MANAGEMENT PLAN: Continue all medications, patient to be discharged on possibly Monday back to [facility] TIME SPENT: 15 minutes. Vital Signs Vital Signs Date Time Temp Pulse Resp B/P (MAP) Pulse Ox O2 Delivery O2 Flow Rate FiO2 06/22/20 10:09 118/74 06/22/20 06:31 98.6 79 12 93 10/11/20 06:46 Room Air Current Medications Current Medications Medications (Trade) Dose Ordered Sig/Sue Route PRN Reason Start Time Stop Time Status Last Admin Dose Admin Acetaminophen (Tylenol Tab) 650 mg Q6HP PRN PO HEADACHE or DISCOMFORT 06/17/20 16:30 Al Hydrox/Mg Hydrox/Simethicone (Mylanta) 30 ml Q4HP PRN PO HEARTBURN/INDIGESTION 06/17/20 16:30 Albuterol Sulfate (Proventil, Ventolin Hfa) 2 puff Q4H PRN INH SOB/WHEEZING 06/17/20 16:30 Divalproex Sodium (Depakote) 1,000 mg BID PO 06/17/20 21:00 06/22/20 10:11 Gabapentin (Neurontin) 300 mg BID PO 06/17/20 21:00 06/22/20 10:11 Home Med (Med Rec Complete!) ASDIRECTED XX 06/17/20 15:00 06/17/20 14:51 DC Ibuprofen (Advil) 600 mg TID PRN PO PAIN 06/17/20 16:30 Lisinopril (Prinivil) 5 mg DAILY PO 06/18/20 09:00 06/22/20 10:09 Magnesium Hydroxide (Milk Of Magnesia) 30 ml DAILYPRN PRN PO CONSTIPATION 06/17/20 16:30 Nicotine (Nicoderm Cq 21mg) 1 patch DAILY TD 06/18/20 09:00 Pantoprazole Sodium (Protonix) 40 mg DAILY PO 06/18/20 09:00 06/22/20 10:11 Trazodone HCl (Desyrel) 50 mg QHSP PRN PO INSOMNIA 06/17/20 16:30 Venlafaxine HCl (Effexor Xr) 150 mg DAILY PO 06/18/20 09:00 06/22/20 10:10 Allergies Coded Allergies: chlorpromazine (Verified Allergy, Severe, nausea/tongue swelling , ) benztropine (Verified Allergy, Unknown, 06/17/20) quetiapine (Verified Allergy, Unknown, 06/17/20) haloperidol (Verified Adverse Reaction, Intermediate, blurry vision/seizures , 06/17/20) USHA HARMON NP Jun 22, 2020 11:01
[2020-06-22 16:01] VITALS: BP 110/66
[2020-06-23 06:25] VITALS: BP 125/81
[2020-06-23] MEDS: NICOTINE 21MG/24HR 1 EA TRANSDERMAL TD SCH (08:44)
[2020-06-23] MEDS: VALBENAZINE 40 MG PO SCH (08:47)
[2020-06-23] MEDS: VENLAFAXINE **XR** 75MG CAPSULE PO SCH (08:48)
[2020-06-23] MEDS: DIVALPROEX 500 MG TAB PO SCH ×2 (08:48→22:02)
[2020-06-23] MEDS: GABAPENTIN 300 MG CAP PO SCH ×2 (08:48→22:02)
[2020-06-23] MEDS: PANTOPRAZOLE 40MG TAB (PROTONIX) PO SCH (08:49)
[2020-06-23] MEDS: lisinopriL 5 MG TAB PO SCH (08:49)
--- NOTE | 2020-06-23 10:08 | MHIPN ---
DATE: 06/21/2020 Patient today states that he is doing good. He has no complaints. MENTAL STATUS EXAMINATION: This patient is alert and oriented times three. Eye contact is fair. Psychomotor activity is poor. There is no formal thought disorder noted. Mood is good. Affect is full range and appropriate. He is not psychotic or suicidal. I did not elicit any delusions today. Insight and judgment is fair. DIAGNOSIS: Schizoaffective disorder. TREATMENT PLAN: We will continue to monitor the patient for his ongoing psychotic symptoms and will titrate medications as indicated. JAMALD
--- NOTE | 2020-06-23 15:08 | MHIPNPDOC ---
[facility] Progress Note Progress Note DATE OF SERVICE: 06/23/20 HISTORY: Patient is a 60 year old single, disabled, domiciled, Male who resides at [facility]. Patient had been non-complaint with his medications and s tarted to become manic, bizarre and delusional. VITAL SIGNS: See below. NEW TEST RESULTS: CURRENT MEDICATIONS: See below. MENTAL STATUS EXAMINATION: Patient is a 60-year old single, disabled, domiciled male, who is admitted to [facility] on a 9.39 after he stopped taking his AOT ordered medications and decompensated. In today's interview he is alert and oriented, dressed in hospital scrubs, hygiene and grooming is well-kempt and is eye contact is good. He was awakened for this interview and he appears mildly drowsy during the evaluation, but calm, cooperative and pleasant. Speech: Is normal rate, tone and volume Language skills are intact Thought processes including: linear and goal oriented Thought content: denies depression, suicidal/homicidal ideation, planning or intent. He is not anxious, denies abnormal psychotic symptoms Abstract reasoning, and computation: Fair Description of associations: None notes, patient denies Description of abnormal or psychotic thoughts: None notes, patient denies Judgment: fair Insight: fair Orientation: alert and oriented to persona, place, time and situation Recent and remote memory: intact Attention span and concentration: fair Language: expansive Fund of knowledge: good Mood: "I am good" Affect: flat DIAGNOSES: 1. Schizoaffective Disorder 2. Tobacco Use Disorder 3. Hypertension ASSESSMENT: "I reduced my medications, but wasn't going to go off the medications. I mean I just wanted some of them lowered, but I don't want to stop the medications, they help me" Patient presented this provider with a small bird cage and states I really liked that group. His presentation is greatly improved. He is not tangential, circumstantial or hyperverbal. His thought process is linear and organized and he is reporting that he is feeling better. He is social with his peers and doing well in the milieu. MANAGEMENT PLAN: Continue all medications, patient to be discharged tomorrow back to [facility]. Discharge orders are in place, patient to continue all medications, he states he has all of his medications and does not need renewals for any of his medications. TIME SPENT: 20 minutes. Vital Signs Vital Signs Date Time Temp Pulse Resp B/P (MAP) Pulse Ox O2 Delivery O2 Flow Rate FiO2 06/23/20 08:49 126/73 06/23/20 06:25 97.6 63 18 06/22/20 06:31 93 06/21/20 06:46 Room Air Current Medications Current Medications Medications (Trade) Dose Ordered Sig/Sue Route PRN Reason Start Time Stop Time Status Last Admin Dose Admin Acetaminophen (Tylenol Tab) 650 mg Q6HP PRN PO HEADACHE or DISCOMFORT 06/17/20 16:30 Al Hydrox/Mg Hydrox/Simethicone (Mylanta) 30 ml Q4HP PRN PO HEARTBURN/INDIGESTION 06/17/20 16:30 Albuterol Sulfate (Proventil, Ventolin Hfa) 2 puff Q4H PRN INH SOB/WHEEZING 06/17/20 16:30 Divalproex Sodium (Depakote) 1,000 mg BID PO 06/17/20 21:00 06/23/20 08:48 Gabapentin (Neurontin) 300 mg BID PO 06/17/20 21:00 06/23/20 08:48 Home Med (Med Rec Complete!) ASDIRECTED XX 06/17/20 15:00 06/17/20 14:51 DC Ibuprofen (Advil) 600 mg TID PRN PO PAIN 06/17/20 16:30 Lisinopril (Prinivil) 5 mg DAILY PO 06/18/20 09:00 06/23/20 08:49 Magnesium Hydroxide (Milk Of Magnesia) 30 ml DAILYPRN PRN PO CONSTIPATION 06/17/20 16:30 Nicotine (Nicoderm Cq 21mg) 1 patch DAILY TD 06/18/20 09:00 Pantoprazole Sodium (Protonix) 40 mg DAILY PO 06/18/20 09:00 06/23/20 08:49 Patient Own Medication (Patient'S Own Med) 40 MG (1 CAP) DAILY PO 06/23/20 09:00 06/23/20 08:47 Trazodone HCl (Desyrel) 50 mg QHSP PRN PO INSOMNIA 06/17/20 16:30 Venlafaxine HCl (Effexor Xr) 150 mg DAILY PO 06/18/20 09:00 06/23/20 08:48 Allergies Coded Allergies: chlorpromazine (Verified Allergy, Severe, nausea/tongue swelling , 06/17/20) benztropine (Verified Allergy, Unknown, 06/17/20) quetiapine (Verified Allergy, Unknown, 06/17/20) haloperidol (Verified Adverse Reaction, Intermediate, blurry vision/seizures , 06/17/20) USHA HARMON NP Jun 23, 2020 15:08
[2020-06-23 16:39] VITALS: BP 123/76
[2020-06-24 06:31] VITALS: BP 140/84
[2020-06-24] MEDS ORDERED: diphenhydrAMINE 50MG CAP PO ONE (08:00)
[2020-06-24] MEDS: NICOTINE 21MG/24HR 1 EA TRANSDERMAL TD SCH (08:58)
[2020-06-24] MEDS: VENLAFAXINE **XR** 75MG CAPSULE PO SCH (09:03)
[2020-06-24] MEDS: PANTOPRAZOLE 40MG TAB (PROTONIX) PO SCH (09:03)
[2020-06-24] MEDS: VALBENAZINE 40 MG PO SCH (09:03)
[2020-06-24 09:04] VITALS: BP 121/81
[2020-06-24] MEDS: lisinopriL 5 MG TAB PO SCH (09:04)
[2020-06-24] MEDS: DIVALPROEX 500 MG TAB PO SCH (09:04)
[2020-06-24] MEDS: GABAPENTIN 300 MG CAP PO SCH (09:04)
--- NOTE | 2020-06-24 16:31 | MHDSPDOC ---
[facility] Discharge Summary Discharge Summary DATE OF ADMISSION: Jun 17, 2020 at 17:00 DATE OF DISCHARGE: Jun 24, 2020 at 13:10 DISCHARGE DIAGNOSES: 1. Schizoaffective Disorder 2. Tobacco Use Disorder 3. Hypertension REASON FOR ADMISSION: Patient is a 60 year old single, disabled, domiciled, Male who resides at [facility]. Patient had been non-complaint with his medications and started to become manic, bizarre and delusional. He was brought in by [facility] and has an AOT order. CONSULTANTS INVOLVED: See Medical Consultation by Medical Providers TREATMENT AND PROGRESS ON THE UNIT : TREATMENT AND PROGRESS ON THE UNIT : [facility] legal status he was afforded the following treatment modalities: 1) Individual Therapy 2) Group Therapy 3) Medication Management 4) Milieu Therapy 5) Safe Environment HOSPITAL COURSE: Patient was restarted on all his home mediations. When he initially was seen he was quite tangential, circumstantial and was mildly grandiose about relationships with women. DISCHARGE ASSESSMENT: Patient is stable. Calm and cooperative. He denies suicidal ideation, homicidal ideation, depression, anxiety, psychosis, ladi, paranoia, ruminations a/v/hallucinations MENTAL STATUS EXAMINATION ON DISCHARGE: Patient is a 60-year old single, disabled, domiciled male, who [facility] after he stopped taking his AOT ordered medications and decompensated. In today's interview he is alert and oriented, dressed in hospital scrubs, hygiene and grooming is well-kempt and is eye contact is good. He was awakened for this interview and he appears mildly drowsy during the evaluation, but calm, cooperative and pleasant. Speech: Is normal rate, tone and volume Language skills are intact Thought processes including: linear and goal oriented Thought content: denies depression, suicidal/homicidal ideation, planning or intent. He is not anxious, denies abnormal psychotic symptoms Abstract reasoning, and computation: Fair Description of associations: None notes, patient denies Description of abnormal or psychotic thoughts: None notes, patient denies Judgment: fair Insight: fair Orientation: alert and oriented to persona, place, time and situation Recent and remote memory: intact Attention span and concentration: fair Language: expansive Fund of knowledge: good Mood: "I am good" Affect: flat MEDICATIONS ON DISCHARGE: Patient continued on all his home medications with no changes. Patient had been non-compliant and stabilized within 2 days of restarting home medications PLAN/FOLLOWUP ARRANGEMENTS: [facility] The amount of time spent in the coordination of care for this patient was approximately 35 minutes. Vital Signs/I&Os Vital Signs Date Time Temp Pulse Resp B/P (MAP) Pulse Ox O2 Delivery O2 Flow Rate FiO2 06/24/20 09:04 121/81 06/24/20 06:31 98.9 59 18 06/22/20 06:31 93 06/21/20 06:46 Room Air Medications Scheduled Divalproex Sodium (Depakote) 500 Mg Tablet.dr, 1,000 MG PO BID, (Reported) Gabapentin (Gabapentin) 300 Mg Capsule, 300 MG PO BID, (Reported) Lisinopril (Lisinopril) 5 Mg Tablet, 5 MG PO DAILY, (Reported) Paliperidone Palmitate (Invega Trinza) 819 Mg/2.625 Ml Syringe, 819 MG IM Q3M, (Reported) Pantoprazole Sodium (Pantoprazole Sodium) 40 Mg Tab, 40 MG PO DAILY, (Reported) Valbenazine Tosylate (Ingrezza) 40 Mg Capsule, 40 MG PO QAM, (Reported) Venlafaxine HCl (Venlafaxine HCl ER) 75 Mg Cap.er.24h, 150 MG PO DAILY, (Reported) Scheduled PRN Albuterol Sulfate (Ventolin Hfa) 18 Gm Hfa.aer.ad, 2 PUFF INH Q4H PRN for SOB/WHEEZING, (Reported) Ibuprofen (Ibuprofen) 600 Mg Tablet, 600 MG PO TID PRN for PAIN, (Reported) Melatonin (Melatonin) 3 Mg Tablet, 6 MG PO QHS PRN for SLEEP, (Reported) Trazodone HCl (Trazodone HCl) 50 Mg Tablet, 50 MG PO QHS PRN for SLEEP, (Reported) Allergies Coded Allergies: chlorpromazine (Verified Allergy, Severe, nausea/tongue swelling , 06/17/20) benztropine (Verified Allergy, Unknown, 06/17/20) quetiapine (Verified Allergy, Unknown, 06/17/20) haloperidol (Verified Adverse Reaction, Intermediate, blurry vision/seizures , 06/17/20) USHA HARMON NP Jun 24, 2020 16:31
== END 2020-06-24 13:10 | disposition home or self-care (01) | DRG 885 ==
LOC: M ED 09:41 → M PSY 17:00
PROVIDERS: ADMIT Psychiatry & Neurology Psychiatry; ATTEND Psychiatry & Neurology Psychiatry
DX: F29 Unspecified psychosis not due to a substance or known physiological condition (principal); F17.200 Nicotine dependence, unspecified, uncomplicated; I10 Essential (primary) hypertension; Z79.899 Other long term (current) drug therapy; Z88.8 Allergy status to other drugs, medicaments and biological substances; K57.30 Diverticulosis of large intestine without perforation or abscess without bleeding; K21.9 Gastro-esophageal reflux disease without esophagitis; J44.9 Chronic obstructive pulmonary disease, unspecified

== ENCOUNTER 2020-07-10 11:00 | Outpatient (RCR) | payer MEDICARE, MEDICAID ==
[~2020-07-10 11:00] MED LIST changes: +IBUP1TAB6 PO; +MELA3TAB44 PO; +VENTAER INH
== END 2020-07-11 ==
LOC: M OUTALCOH 11:00
PROVIDERS: ATTEND Psychiatry & Neurology Addiction Medicine
DX: F10.20 Alcohol dependence, uncomplicated (principal); F12.20 Cannabis dependence, uncomplicated; F17.200 Nicotine dependence, unspecified, uncomplicated

== ENCOUNTER → 2020-07-16 | Outpatient (CLI) | payer OTHER ==
[2020-07-16 09:41] LABS: BASO % 0.6 % (0.0-1.0); EOS # 0.2 10^3/uL (0.0-0.5); EOS % 3.1 % (0.0-3.0); HEMATOCRIT 42.8 % (42.0-52.0); HEMOGLOBIN 14.2 g/dl (13.5-17.5); LYMPH # 2.5 10^3/uL (1.5-5.0); LYMPH % 36.8 % (24.0-44.0); MEAN CORPUSCULAR HEMOGLOBIN 30.5 pg (27.0-33.0); MEAN CORPUSCULAR HGB CONC 33.2 g/dl (32.0-36.5); MONO # 0.7 10^3/uL (0.0-0.8); MONO % 10.3 % (0.0-5.0); NEUTROPHILS # 3.3 10^3/uL (1.5-8.5); NEUTROPHILS % 49.1 % (36.0-66.0); PLATELET COUNT, AUTOMATED 293 10^3/uL (150-450); RED BLOOD COUNT 4.65 10^6/uL (4.30-6.10); WHITE BLOOD COUNT 6.8 10^3/uL (4.0-10.0)
[2020-07-16 10:07] LABS: ALBUMIN 3.5 GM/DL (3.2-5.2); ALT/SGPT 15 U/L (12-78); BILIRUBIN,TOTAL 0.3 MG/DL (0.2-1.0); BLOOD UREA NITROGEN 16 MG/DL (7-18); CALCIUM LEVEL 9.3 MG/DL (8.8-10.2); CARBON DIOXIDE LEVEL 33 MEQ/L (21-32); CHLORIDE LEVEL 103 MEQ/L (98-107); CHOLESTEROL LEVEL 182 MG/DL (<200); CHOLESTEROL RISK RATIO 3.137 (<5); CREATININE FOR GFR 0.66 MG/DL (0.70-1.30); GLOMERULAR FILTRATION RATE > 60.0 (>49); GLUCOSE, FASTING 96 MG/DL (70-100); HDL CHOLESTEROL 58 MG/DL (>40); LDL CHOLESTEROL 114 MG/DL (<100); NON-HDL-C 124 MG/DL; POTASSIUM SERUM 4.8 MEQ/L (3.5-5.1); SODIUM LEVEL 139 MEQ/L (136-145); TOTAL PROTEIN 6.4 GM/DL (6.4-8.2); TRIGLYCERIDES LEVEL 51 MG/DL (<150)
[2020-07-16 10:37] LABS: HEMOGLOBIN A1c 5.6 %
== END ==
LOC: M LAB 08:44
PROVIDERS: ATTEND Nurse Practitioner Family
DX: Z00.01 Encounter for general adult medical examination with abnormal findings (principal)

== ENCOUNTER 2020-07-31 11:00 | Outpatient (RCR) | payer MEDICARE, MEDICAID ==
[~2020-07-31 11:00] MED LIST changes: -FLUP5TA PO; +FLUP5TAB13 PO
== END 2020-08-10 ==
LOC: M OUTALCOH 11:00
PROVIDERS: ATTEND Psychiatry & Neurology Addiction Medicine
DX: F12.20 Cannabis dependence, uncomplicated (principal); F10.20 Alcohol dependence, uncomplicated; F17.200 Nicotine dependence, unspecified, uncomplicated

== ENCOUNTER → 2020-09-10 | Outpatient (RCR) | payer MEDICARE, MEDICAID | LOC: M OUTALCOH 08-14 14:34 | PROVIDERS: ATTEND Psychiatry & Neurology Addiction Medicine | DX: F10.20 Alcohol dependence, uncomplicated (principal); F12.20 Cannabis dependence, uncomplicated; F17.200 Nicotine dependence, unspecified, uncomplicated ==

== ENCOUNTER 2020-10-01 11:00 | Outpatient (RCR) | payer MEDICARE, MEDICAID ==
[~2020-10-01 11:00] MED LIST changes: +GABA-282 PO; -GABA-843 PO
== END 2020-10-11 ==
LOC: M OUTALCOH 11:00
PROVIDERS: ATTEND Psychiatry & Neurology Psychiatry
DX: F12.20 Cannabis dependence, uncomplicated (principal); F10.20 Alcohol dependence, uncomplicated; F17.200 Nicotine dependence, unspecified, uncomplicated

== ENCOUNTER 2020-11-05 10:00 | Outpatient (RCR) | payer MEDICARE, MEDICAID ==
[~2020-11-05 10:00] MED LIST changes: -INGR40CA PO; -LISI-542 PO; +LISI-898 PO; +LISI10TA22 PO; -LISI10TA4 PO; +VALB40CA PO
== END 2020-11-08 ==
LOC: M OUTALCOH 10:00
PROVIDERS: ATTEND Psychiatry & Neurology Psychiatry
DX: F12.20 Cannabis dependence, uncomplicated (principal); F10.20 Alcohol dependence, uncomplicated; F17.200 Nicotine dependence, unspecified, uncomplicated

== ENCOUNTER → 2020-11-17 | Outpatient (REF) | payer MEDICARE, MEDICAID ==
[2020-11-17 16:54] LABS: BASO % 0.4 % (0.0-1.0); EOS # 0.1 10^3/uL (0.0-0.5); EOS % 1.8 % (0.0-3.0); HEMATOCRIT 45.7 % (42.0-52.0); HEMOGLOBIN 14.7 g/dl (13.5-17.5); LYMPH # 2.3 10^3/uL (1.5-5.0); LYMPH % 29.4 % (24.0-44.0); MEAN CORPUSCULAR HEMOGLOBIN 30.4 pg (27.0-33.0); MEAN CORPUSCULAR HGB CONC 32.2 g/dl (32.0-36.5); MEAN CORPUSCULAR VOLUME 94.4 fl (80.0-96.0); MONO # 0.6 10^3/uL (0.0-0.8); MONO % 8.1 % (2.0-8.0); NEUTROPHILS # 4.8 10^3/uL (1.5-8.5); NEUTROPHILS % 59.9 % (36.0-66.0); PLATELET COUNT, AUTOMATED 276 10^3/uL (150-450); RED BLOOD COUNT 4.84 10^6/uL (4.30-6.10); WHITE BLOOD COUNT 7.9 10^3/uL (4.0-10.0)
[2020-11-17 17:32] LABS: ALBUMIN 3.6 GM/DL (3.2-5.2); ALT/SGPT 20 U/L (12-78); BILIRUBIN,TOTAL 0.3 MG/DL (0.2-1.0); BLOOD UREA NITROGEN 15 MG/DL (7-18); CALCIUM LEVEL 9.1 MG/DL (8.8-10.2); CARBON DIOXIDE LEVEL 33 MEQ/L (21-32); CHLORIDE LEVEL 103 MEQ/L (98-107); CHOLESTEROL LEVEL 184 MG/DL (<200); CHOLESTEROL RISK RATIO 3.228 (<5); CREATININE FOR GFR 0.75 MG/DL (0.70-1.30); GLOMERULAR FILTRATION RATE > 60.0 (>49); GLUCOSE, FASTING 90 MG/DL (70-100); HDL CHOLESTEROL 57 MG/DL (>40); LDL CHOLESTEROL 115 MG/DL (<100); NON-HDL-C 127 MG/DL; POTASSIUM SERUM 5.2 MEQ/L (3.5-5.1); SODIUM LEVEL 138 MEQ/L (136-145); TOTAL PROTEIN 6.5 GM/DL (6.4-8.2); TRIGLYCERIDES LEVEL 62 MG/DL (<150)
[2020-11-17 18:35] LABS: HEMOGLOBIN A1c 5.5 %
== END ==
LOC: M LAB REF 16:15
PROVIDERS: ATTEND Nurse Practitioner Family
DX: Z00.00 Encounter for general adult medical examination without abnormal findings (principal); I10 Essential (primary) hypertension; F17.200 Nicotine dependence, unspecified, uncomplicated; K21.9 Gastro-esophageal reflux disease without esophagitis

== ENCOUNTER 2020-12-03 11:00 | Outpatient (RCR) | payer MEDICARE, MEDICAID | END 2020-12-09 | LOC: M OUTALCOH 11:00 | PROVIDERS: ATTEND Psychiatry & Neurology Psychiatry | DX: F10.20 Alcohol dependence, uncomplicated (principal); F12.20 Cannabis dependence, uncomplicated; F17.200 Nicotine dependence, unspecified, uncomplicated ==